=== PATIENT | female | born 1975 | race African-American/Black ===

== ENCOUNTER 2024-09-24 09:47 | Outpatient (AMB) | payer OTHER, SELFPAY ==
--- OUTSIDE RECORDS SUMMARY | 2024-09-24 09:51 | XMS_ITS | Continuity of Care Document ---
Author Organization [facility] Address [address] [place] [address] Phone Care Team Providers Care Pest Control Supervisor Name Role Phone Shashi Jiménez Unavailable Unavailable [...] Simpl e Exostectomy (Silver Procedure) Or Cheilectomy Repair Hallux Rigidus; Simpl e Exostectomy (Silver Procedure) Or Cheilectomy Crutches Alum Push Button Adult 014 Post Op Shoe Deluxe Female Large 2013 Intermediate New Patient Visit 14 Advance Directives [...] Diagnoses Date Provider Providers Copied on Encounter [facility], [address] [place] [address], [id number], tel:[phone] [place] [address] Ct right foot post op (chief complaint) No Information 4 Damion Danielle. [address] [place] [address], [id number] , [place]. tel:[phone] [place] [address] [facility], [address] [place] [address], [id number], [place] tel:[phone] [place] [address] Ct right foot pain (chief complaint) Pain In Limb 4 Julius Haro. [address] [place] [address], [id number] , [place]. tel: [phone] [place] [address]s [place], [address] [place] [address], [id number], [place] tel:[phone] [address] [place] [address] Ct Right Foot Pain (chief complaint) Aftercare following surgery of the musculoskeletal system, [facility] 4 Damion Danielle. [address] [place] [address], [id number] , [place]. tel: [phone] [place] [address] [facility] [place], [address] [place] [address], [id number], [place] tel:[phone] [address] [place] [address] Ct No Information 4 Julius Haro. [address] [place] [address], [id number] , [place]. tel: [phone] [facility] [place], [address] [place] [address], [id number], [place] tel:[phone] [facility] No Information 4 Damion Danielle. [address] [place] [address], [id number] , [place]. tel: [phone] [facility] [place], [address] [place] [address], [id number], [place] tel:[phone] [facility] No Information 4 Julius Haro. [address] [place], [place], [id number] , [place]. tel:[phone] [facility] [place], [address] [place] [address], [id number], tel:[phone] [place] [address] [facility] Ct No Information 4 Julius Haro. [address] [place], [place], [id number] , . tel:[phone] Intermediate New Patient Visit [facility], [address] [place] [address], [id number], [phone] [place] [address] Ct right foot pain (chief complaint) Ankle And Foot PainDJD Ankle & Foot PrimaryHallux rigidusExostosi s of unspecified siteLocalized superficial swelling, mass, or lump 4 Julius Haro. [address] [place] [address], [id number] , . tel:[phone] Family History Family Member Type Diagnosis Age At Onset No Information Payers Payer name Insurance type Covered constitution party ID Authorshenaa dineshafshan(s) [facility] [id number] Social History Type Description Quantity Date Captured [...] Radiology Order X- RAY Foot 3 Views ([id number]), Appointment on: , Sent on: Sent History [...] as needed Discussed post op care/precautio ns Use assistance device support (bharath ashby) Limit walking, standing and impa ct Take medications with food Joint rest Follow exercise program Continue current medication Elevate limb above level of hear t Assessments Type Assessment Date No Information Patient Care Teams Name Effective Dates (start - stop) Status Members No Information
[2024-09-24 10:16] VITALS: BP 116/62; PULSE 75; O2SAT 100; BMI 23.9
--- NOTE | 2024-09-24 10:16 | A.OFFVIS_ITS ---
Vital Signs 09/24/24 10:16 Height 5 ft 8 in Weight 157 lb 6.561 oz BMI 23.9 BP 116/62 Blood Pressure Location Lt brachial Position Sitting Pulse 75 Pulse Source Pulse Oximeter Pulse Oximetry (%) 100 Oxygen Delivery Method Room Air Intake Visit Reasons: Lupus Intake Note: Patient presents for follow up on lupus today. Allergies azithromycin Allergy (Mild, Verified 09/24/24 10:20) Rash sulfamethoxazole [From Bactrim] Adverse Reaction (Mild, Verified 09/24/24 10:20) Rash trimethoprim [From Bactrim] Adverse Reaction (Mild, Verified 09/24/24 10:20) Rash HPI HPI Lupus: Details: She is doing well on hydroxychloroquine. She denies fevers, rash, oral ulcerations, joint pain, worsening fatigue, dyspnea, pleurisy, urinary symptoms, Raynaud's phenomenon. She has actively using gloves in the cold. [facility] Medical History (Updated 09/24/24 @ 15:58 by Jayy Gould MD) Raynauds disease Hypothyroid Lupus (systemic lupus erythematosus) Physical Exam Vital Signs: Last Vital Signs Pulse 75 09/24/24 10:16 BP 116/62 09/24/24 10:16 Pulse Ox 100 09/24/24 10:16 Oxygen Delivery Method Room Air 09/24/24 10:16 BMI result Body Mass Index 23.9 Const Other: General: Comfortable CVS: RRR Respiratory: clear to auscultation bilaterally. Good respiratory effort Skin: No lesions seen MSK: No tenderness of any joints. No synovitis. Good range of motion of upper extremities and lower extremities. Assessment & Plan Assessment & Plan (1) Lupus (systemic lupus erythematosus): Comment: Controlled on hydroxychloroquine 200 mg daily. Code(s): M32.9 - Systemic lupus erythematosus, unspecified Category: Medical Qualifiers: Systemic lupus erythematosus type: unspecified Systemic lupus erythematosus organ involvement: unspecified Qualified Code(s): M32.9 - Systemic lupus erythematosus, unspecified Plan: Labs for disease and drug monitoring ordered Continue hydroxychloroquine 200 mg daily. 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60 - half-way (current) use of unspecified immunomodulators and immunosuppressants Aspartate Amino Transferase Today Z79.60 - technician terminal and repeater (current) use of unspecified immunomodulators and immunosuppressants Complete Blood Count Auto Diff Today Z79.60 - half-way (current) use of unspecified immunomodulators and immunosuppressants BAMBI Reflex Titer and Pattern Today M32.9 - Systemic lupus erythematosus, unspecified Anti Extractable Nuclear Ag Today M32.9 - Systemic lupus erythematosus, unspecified Hepatitis B,C Profile Today M32.9 - Systemic lupus erythematosus, unspecified Complement C3 Today M32.9 - Systemic lupus erythematosus, unspecified Complement C4 Today M32.9 - Systemic lupus erythematosus, unspecified Protein Creatinine Ratio, Ur Today M32.9 - Systemic lupus erythematosus, unspecified Coding Level of Care Code Est Pt Level 4 (76881) Complex EM visit Add On G2211 Diagnoses Systemic lupus erythematosus, unspecified SLE type, unspecified organ involvement status M32.9 Systemic lupus erythematosus type: unspecified Systemic lupus erythematosus organ involvement: unspecified Other watermelon harvesting supervisor (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
== END 2024-09-24 10:57 | disposition home or self-care (01) ==
PROVIDERS: PCP Family Medicine; Visit Provider Internal Medicine Rheumatology
DX: M32.9 Systemic lupus erythematosus, unspecified (principal); Z79.899 Other long term (current) drug therapy
CPT/HCPCS: 99214

== ENCOUNTER 2025-04-28 08:13 | Outpatient (AMB) | payer OTHER, SELFPAY ==
--- OUTSIDE RECORDS SUMMARY | 2014-06-10 05:50 | XMS_ITS | Continuity of Care Document ---
Author Organization [facility] Address [address] [place] [address] Phone Care Team Providers Care Check Out Cashier Name Role Phone Shashi Jiménez Unavailable Unavailable Allergies, Adverse Reactions, Alerts Substance Reaction Status Criticality No Known allergies Medications Medication Instructions Dosage Effective Dates (start - stop) Status Comments hydroxychloroquine 200 mg tablet take 2 every evening - Active levothyroxine 200 mcg Tab take 1 tablet (200MCG) by oral route every day 200 MCG - Active Vitamin D-3 2,000 unit Tab take 1 Capsule by Oral route every day 1 Capsule - Active Procedures Procedure Date Follow Up Care X-RAY Foot 3 Views Follow Up Care STRAPPING OF ANKLE AND/OR FT Follow Up Care Integrity Fracture Walker Air Short Medi um Follow Up Care Repair Hallux Rigidus; Simpl e Exostectomy (Silver Procedure) Or Cheilectomy Crutches Alum Push Button Adult 014 Post Op Shoe Deluxe Female Large 2013 Repair Hallux Rigidus; Simpl e Exostectomy (Silver Procedure) Or Cheilectomy Intermediate New Patient Visit 14 Advance Directives Directive Yes / No Effective Date File Name Resuscitation Not Answered N/A N/A Life Support Not Answered N/A N/A Intubation Not Answered N/A N/A Antibiotics Not Answered N/A N/A IV Fluid Support Not Answered N/A N/A Tube Feed Not Answered N/A N/A Other Directive N/A N/A WARNING:The information contained in this section is historical and is provided for information only and does not constitute a legal document or any assurance that the information is still accurate. Please verify the information with the burns of the legal document before using it for clinical purposes. Encounters Encounter Description Practice Location Reason(s) For Visit Diagnoses Date Provider Providers Copied on Encounter [facility], [address] [place] [address], [id number], tel:[phone] [place] [address] Ct right foot post op (chief complaint) No Information 4 Damion Danielle. [address] [place] [address], [id number] , [place]. tel:[phone] [place] [address] [facility], [address] [place] [address], [id number], [place] tel:[phone] [place] [address] Ct right foot pain (chief complaint) Pain In Limb 4 Julius Haro. [address] [place] [address], [id number] , [place]. tel: [phone] [place], [place] [address]s [place], [address] [place] [address], [id number], [place] tel:[phone] [address] [place] [address] Ct Right Foot Pain (chief complaint) Aftercare following surgery of the musculoskeletal system, [facility] 4 Damion Danielle. [address] [place] [address], [id number] , [place]. tel: [phone] [place], [place] [address]s [place], [address] [place] [address], [id number], [place] tel:[phone] [address] [place] [address] Ct No Information 4 Julius Haro. [address] [place] [address], [id number] , [place]. tel: [phone] [facility] [place], [address] [place] [address], [id number], [place] tel:[phone] [facility] No Information 4 Julius Haro. [address] [place] [address], [id number] , [place]. tel: [phone] [facility] [place], [address] [place] [address], [id number], [place] tel:[phone] [facility] No Information 4 Damion Danielle. [address] [place], [id number] , [place]. tel:[phone] [facility] [place], [address] [place] [address], [id number], tel:[phone] [place] [address] Ct No Information 4 Julius Haro. [address] [place], [place], [id number] , . tel:[phone] Intermediate New Patient Visit [facility], [address] [place], [place], [id number], [phone] [place] [address] Ct right foot pain (chief complaint) Ankle [facility] Foot [facility] Ankle [facility] Foot PrimaryHallux rigidusExostosi s of unspecified siteLocalized superficial swelling, mass, or lump 4 Julius Haro. [address] [place] [address], [id number] , . tel:[phone] Family History Family Member Type Diagnosis Age At Onset No Information Payers Payer name Insurance type Covered constitution party ID Authoriza dineshafshan(s) [facility] [id number] Social History Type Description Quantity Date Captured Comments Alcohol Use Details No Caffeine Use Details Unknown Tobacco Use Status No Information Smoking Status No Information Sex Female Chief Complaint And Reason For Visit From encounter dated '06/10/2014 09:50'. right foot post op (chief complaint) Reason For Referral Reason For Referral No Information Plan Of Treatment Date Type Action Status Goal H&P. Due on due Future Order: Radiology Order X- RAY Foot 3 Views ([id number]), Appointment on: , Sent on: Sent History Of Present Illness Encounter Date Complaint History Of Prese nt Illness No Information Functional Status Date Functional Assessmen t No Information Instructions Date Instruction Additional Infor mation Advance activity as tolerated Progress until full ROM MVI prn Advance activity as tolerated Discussed wound care Discussed post op care/precautio ns Elevate as needed Ice as needed Progress until full ROM Progress until full strength Resume normal activity Elevate as needed Discussed post op care/precautio ns Discussed wound care February cut dressing off on own in 1 week WBAT in low boot Ice as needed Ice as needed Elevate as needed Discussed post op care/precautio ns Joint rest Follow exercise program Continue current medication Elevate limb above level of hear t Use assistance device support (bharath ashby) Limit walking, standing and impa ct Take medications with food Assessments Type Assessment Date No Information Patient Care Teams Name Effective Dates (start - stop) Status Members No Information
--- NOTE | 2025-04-28 08:16 | MHC.OFFVIS ---
Vital Signs 04/28/25 08:17 Height 5 ft 8 in BP 110/80 Blood Pressure Location Rt brachial Position Sitting Pulse 74 Pulse Source Pulse Oximeter Pulse Oximetry (%) 96 Oxygen Delivery Method Room Air Intake Visit Reasons: Follow Up 6mo Intake Note: Patient presents for follow up on lupus today. Allergies azithromycin Allergy (Mild, Verified 04/28/25 08:16) Rash sulfamethoxazole (From Bactrim) Adverse Reaction (Mild, Verified 04/28/25 08:16) Rash trimethoprim (From Bactrim) Adverse Reaction (Mild, Verified 04/28/25 08:16) Rash HPI HPI Follow Up 6mo: Details: Denies fevers, dyspnea, pleurisy, oral ulcers, dry eyes, dry mouth, rash, photosensitivity, migraines, urinary symptoms, active Raynaud's syndrome, joint pain, joint swelling. Raynauds is active in finger tips when she exposes herself to the freezer, warms up quickly. She had food poisoning when on vacation. +hair loss frontal and right scalp. Sees [facility] and is on treatment. [facility] Medical History (Updated 04/28/25 @ 08:45 by Jayy Gould MD) Raynauds disease Hypothyroid Lupus (systemic lupus erythematosus) Physical Exam Const Other: General: Comfortable CVS: RRR Respiratory: clear to auscultation bilaterally. Good respiratory effort Skin: No lesions seen MSK: No tenderness of any joints. No synovitis. Normal range of motion of upper extremities and lower extremities. Assessment & Plan Assessment & Plan (1) Lupus (systemic lupus erythematosus): Comment: Controlled on hydroxychloroquine 200 mg daily. 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 Rheumatology history: Positive BAMBI, Sm/HYBRID CORN BREEDER, low C4, Raynaud's syndrome, fatigue, arthralgias. Prior history of moderate positive Sjogren's antibody (SSA/SSB neg 12/2022. HCQ 2013- Code(s): M32.9 - Systemic lupus erythematosus, unspecified Category: Medical Qualifiers: Systemic lupus erythematosus organ involvement: unspecified Systemic lupus erythematosus type: unspecified Qualified Code(s): M32.9 - Systemic lupus erythematosus, unspecified Plan: Labs for disease and drug monitoring ordered. I will send labs to PCP and [facility]. [facility] per patient's request. She will be following up with Dermatology for hair loss management Continue hydroxychloroquine 200 mg daily. 03/20/2024 OCT and VF wnl. 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: Code(s): Z79.899 - Other senior care (current) drug therapy Category: Medical Plan: See above Orders: Orders Complete Blood Count Auto Diff Today M32.9 - Systemic lupus erythematosus, unspecified, Z79.899 - Other predatory animal exterminator (current) drug therapy Anti DNA DS Antibody Today M32.9 - Systemic lupus erythematosus, unspecified, Z79.899 - Other predatory animal exterminator (current) drug therapy Alanine Aminotransferase Today M32.9 - Systemic lupus erythematosus, unspecified, Z79.899 - Other predatory animal exterminator (current) drug therapy Aspartate Amino Transferase Today M32.9 - Systemic lupus erythematosus, unspecified, Z79.899 - Other predatory animal exterminator (current) drug therapy Creatinine Today M32.9 - Systemic lupus erythematosus, unspecified, Z79.899 - Other senior care (current) drug therapy C Reactive Protein Today M32.9 - Systemic lupus erythematosus, unspecified, Z79.899 - Other predatory animal exterminator (current) drug therapy Erythrocyte Sedimentation Rate Today M32.9 - Systemic lupus erythematosus, unspecified, Z79.899 - Other predatory animal exterminator (current) drug therapy UA w Microscopic Today M32.9 - Systemic lupus erythematosus, unspecified, Z79.899 - Other senior care (current) drug therapy Protein Creatinine Ratio, Ur Today M32.9 - Systemic lupus erythematosus, unspecified, Z79.899 - Other predatory animal exterminator (current) drug therapy Complement C4 Today M32.9 - Systemic lupus erythematosus, unspecified, Z79.899 - Other senior care (current) drug therapy Complement C3 Today M32.9 - Systemic lupus erythematosus, unspecified, Z79.899 - Other predatory animal exterminator (current) drug therapy Medications: Changed From hydroxychloroquine 200 mg PO DAILY To hydroxychloroquine 300 mg (1.5 x 200 mg) PO DAILY 135 tabs 3RF 90 days Coding Level of Care Code Est Pt Level 4 (86060) Complex EM visit Add On G2211 Diagnoses Systemic lupus erythematosus, unspecified SLE type, unspecified organ involvement status M32.9 Systemic lupus erythematosus organ involvement: unspecified Systemic lupus erythematosus type: unspecified Other senior care (current) drug therapy Z79.899
[2025-04-28 08:17] VITALS: BP 110/80; PULSE 74; O2SAT 96
--- OUTSIDE RECORDS SUMMARY | 2025-04-28 08:24 | XMS_ITS | Data Portability ---
Author Organization [facility], [facility] Address [address] [place] [address] Care Team Providers Care National Account Representative Name Role Phone ADDISON ELMORE Primary Care Provider [facility] PLASTIC SURGERY Plastic/Reconstructive Surgeon ORTEGA PAUL Bag Mender [facility] DERMATOLOGY Cushion Stuffer KISHOR CALLES Patient Safety Sitter Assessment Encounter Date Assessment Date Assessment LastModified by Organization Details LastModified Time 08/24/2022 08/24/2022 OT visit # 1 Initial Evaluation A: Pt is a 47 year old referred to outpatient occupational therapy by WILL Clifford with signs and symptoms consistent with: R wrist pain and bilateral CTS Exam findings reveal: Probable R wrist dorsal ganglion cyst, mod increases in pain with wrist flexion/extension. 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 new Treatments may include (as appropriate/as indicated): Therapeutic exercise/Neuromusc ular Reeducation/Therap eutic Activities/ROM, flexibility, endurance, power, functional mechanics/postures /activities; coordination/motor planning/motor control; balance; proprioception; stability; self care/ADL management; home exercise instruction; manual; modalities; taping; orthotics/splint fabrication/traini ng/management [email or web address] Not available 08/24/2022 13:30:24 10/02/2022 10/02/2022 After a discussi on of treatment options, which included consideration of best practices and patient preferences, the following treatment plan and objectives were adopted: My total time spent today documenting and providing coordinated care for this patient is 30 ___. I have reviewed, collected, and updated relevant history and performed a physical exam. Below is my assessment and plan for this patient s care today. [email or web address] Not available 10/02/2022 09:39:00 05/23/2023 05/23/2023 After a discussi on of treatment options, which included consideration of best practices and patient preferences, the following treatment plan and objectives were adopted: pkeough Not available 05/23/2023 08:50:37 06/17/2023 06/17/2023 Patient agreed t o this visit via a secure telehealth platform. Patient understands this is a scheduled visit and the usual procedures with regard to billing and confidentiality apply. Patient was notified that the provider location is [facility] Patient location: home During the visit the patient s medical history and medical record were reviewed. The patient was notified to call our office for worsening or urgent symptoms. [email or web address] Not available 06/17/2023 11:09:04 05/29/2024 05/29/2024 After a discussi on of treatment options, which included consideration of best practices and patient preferences, the following treatment plan and objectives were adopted: pkeough Not available 05/29/2024 09:00:59 Plan of Treatment Reminders Order Date Submit Date Provider Last Modified By Organization Details Last Modified Time Details Appointments Wellness Visit 2024 08:30A M Addison Elmore NP Not available Not available Not available Lab pap, LB + HPV - Pap smear with HPV-YES Is this patient taking hormones (y/n)? IF yes, what type? 2023 024 [facility] (Pathology), [address], [place], [address], 06/05/2024 12:22:01 Referral None recorded. Procedures None recorded. Surgeries None recorded. Imaging US, pelvis, transabdo aktey + transvagi nal - irregular menses 2023 024 [facility] (Imaging), [address], [place], [address], 06/19/2024 09:21:39 electroca rdiogram 2022 023 [email or web address] [facility], [address], [place], [address], 05/23/2023 09:51:35 Medication Orders ciproflox acin 0.3 % eye drops 2022 024 [facility] #[id number], [address], [place], [address], 05/29/2024 08:41:23 Patient TargetsNo targets recorded. Patient Instructions Encounter Date Encounter Id Patient Instructions Last Modified By Organization Details Last Modified Time 05/23/2023 [id number] well visit, wome n 50 to 65: care instructions [email or web address] Not available 05/23/2023 09:42:42 Reason for Referral None Reported. Results Created Date Observation Date Name Description Value Unit Range Abnormal Flag Note LastModifiedBy Organization Detail LastModifiedTime 07/31/20 22 07/31/2022 SEDIM ENTAT ION RATE (ESR) ESR 25 mm/h 0-20 high Not Available [facility] (Outpatient) [address] [place], [address], 07/31/2022 22:10:19 07/31/20 22 08/03/2022 PROTE IN ELECT ROPHO RESIS AND ISOTY PE therapeutic antibody administered ? Unspec ified Not Available [facility] (Outpatient) [address] [place], [address], 08/03/2022 15:58:43 07/31/20 22 08/03/2022 PROTE IN ELECT ROPHO RESIS AND ISOTY PE total protein 8.3 g/dL 6.3-7. 9 high Not Available [facility] (Outpatient) [address] [place], [address], 08/03/2022 15:58:43 07/31/20 22 08/03/2022 PROTE IN ELECT ROPHO RESIS AND ISOTY PE albumin 3.4 g/dL 3.4-4. 7 Not Available [facility] (Outpatient) [address] [place], [address], 08/03/2022 15:58:43 07/31/20 22 08/03/2022 PROTE IN ELECT ROPHO RESIS AND ISOTY PE alpha-1 globulin 0.2 g/dL 0.1-0. 3 Not Available [facility] (Outpatient) [address] [place], [address], 08/03/2022 15:58:43 07/31/20 22 08/03/2022 PROTE IN ELECT ROPHO RESIS AND ISOTY PE alpha-2 globulin 1.1 g/dL 0.6-1. 0 high Not Available [facility] (Outpatient) [address] [place], [address], 08/03/2022 15:58:43 07/31/20 22 08/03/2022 PROTE IN ELECT ROPHO RESIS AND ISOTY PE beta-globuli n 1.0 g/dL 0.7-1. 2 Not Available [facility] (Outpatient) [address] [place], [address], 08/03/2022 15:58:43 07/31/20 22 08/03/2022 PROTE IN ELECT ROPHO RESIS AND ISOTY PE gamma-globul in 2.6 g/dL 0.6-1. 6 high Not Available [facility] (Outpatient) [address] [place], [address], 08/03/2022 15:58:43 07/31/20 22 08/03/2022 PROTE IN ELECT ROPHO RESIS AND ISOTY PE A/G ratio 0.71 Not Available [facility] (Outpatient) [address] [place], [address], 08/03/2022 15:58:43 07/31/20 22 08/03/2022 PROTE IN ELECT ROPHO RESIS AND ISOTY PE M spike g/dL Test compo nent not appli cable or not repor diane. Test compo nent not appli cable or not repor diane. Not Available [facility] (Outpatient) [address] [place], [address], 08/03/2022 15:58:43 07/31/20 22 08/03/2022 PROTE IN ELECT ROPHO RESIS AND ISOTY PE impression SEE NOTE (NOTE ) Polyc lonal hyper gamma globu linem ia See Isoty pe. Not Available [facility] (Outpatient) [address] [place], [address], 08/03/2022 15:58:43 07/31/20 22 08/03/2022 PROTE IN ELECT ROPHO RESIS AND ISOTY PE M-protein isotype maldi-tof MS, S No monocl onal protei n detect ed. (NOTE ) ----- ----- ----- ----A DDITI ONAL INFOR MATIO N---- ----- ----- ----- The submi tted sampl e was assay ed by five separ ate immun opuri ficat ions for IgG, IgA, IgM, kappa and lambd a. The resul t refle cts the findi ngs of eithe r no monoc lonal prote in detec diane or those monoc lonal immun oglob ulins that were detec diane. This test was devel oped and its perfo rmanc e josh cteri stics deter mined by [facility] in a shanti r consi stent with AYLEEN guadarrama. This test has not been clear ed or appro nino by the U.S. Food and Drug Admin istra tion. Not Available [facility] (Outpatient) [address] [place], [address], 08/03/2022 15:58:43 07/31/20 22 08/03/2022 PROTE IN ELECT ROPHO RESIS AND ISOTY PE flag M-protn isotype Negati ve negati ve Not Available [facility] (Outpatient) [address] [place], [address], 08/03/2022 15:58:43 05/03/20 23 05/03/2023 TSH TSH 0.57 uIU/m L 0.50-6 .00 The Ameri can Colle ge of Endoc rinol ogy and Ameri can Thyro id Assoc iatio n recom mend goal TSH value s betwe en 0.4-4 .0 mIU/m L. Not Available [address], [address], 05/03/2023 15:12:16 05/03/20 23 05/06/2023 COMP. METAB OLIC PANEL glucose 84 mg/dL 70-100 Not Available [address], [address], 05/06/2023 11:18:06 05/03/20 23 05/06/2023 COMP. METAB OLIC PANEL BUN 16 mg/dL 7-18 Not Available [address], [address], 05/06/2023 11:18:06 05/03/20 23 05/06/2023 COMP. METAB OLIC PANEL creatinine 1.1 mg/dL 0.8-1. 3 Not Available [address], [address], 05/06/2023 11:18:06 05/03/20 23 05/06/2023 COMP. METAB OLIC PANEL B/C 14.5 ratio Not Available [address], [address], 05/06/2023 11:18:06 05/03/20 23 05/06/2023 COMP. METAB OLIC PANEL GFR >=60ML /MIN mL/mi n normal >=60m L/min - Anais l or midly reduc ed <60mL /min- Decre ased kidne y funct ion <15mL /min - Kidne y failu re [facility] calcu lates estim ated Glome rular Filtr ation Rate (eGFR ) using the Chron ic Kidne y Disea se Epide miolo gy Colla borat ion (CKD- EPI) Equat ion (Drea martino et. al 2020) as recom kathia d by the Natio nal Kidne y Found ation . eGFR is based on age, serum creat inine , and sex. CKD-E PI does not calcu late eGFR by race, does not apply to child ta (age <18 years ), and shoul d not be used in pregn kacey. Not Available [address], [address], 05/06/2023 11:18:06 05/03/20 23 05/06/2023 COMP. METAB OLIC PANEL sodium 139 mmol/ L 136-14 5 Not Available [address], [address], 05/06/2023 11:18:06 05/03/20 23 05/06/2023 COMP. METAB OLIC PANEL potassium 4.8 mmol/ L 3.5-5. 1 Not Available [address], [address], 05/06/2023 11:18:06 05/03/20 23 05/06/2023 COMP. METAB OLIC PANEL chloride 101 mmol/ L 96-107 Not Available [address], [address], 05/06/2023 11:18:06 05/03/20 23 05/06/2023 COMP. METAB OLIC PANEL anion gap 11.4 5.0-15 .0 Not Available [address], [address], 05/06/2023 11:18:06 05/03/20 23 05/06/2023 COMP. METAB OLIC PANEL CO2 27 mmol/ L 21-32 Not Available [address], [address], 05/06/2023 11:18:06 05/03/20 23 05/06/2023 COMP. METAB OLIC PANEL calcium 9.1 mg/dL 8.5-10 .3 Not Available [address], [address], 05/06/2023 11:18:06 05/03/20 23 05/06/2023 COMP. METAB OLIC PANEL total protein 8.3 g/dL 6.4-8. 2 high Not Available [address], [address], 05/06/2023 11:18:06 05/03/20 23 05/06/2023 COMP. METAB OLIC PANEL albumin 3.8 g/dL 3.4-5. 0 Not Available [address], [address], 05/06/2023 11:18:06 05/03/20 23 05/06/2023 COMP. METAB OLIC PANEL globulin 4.5 g/dL Not Available [address], [address], 05/06/2023 11:18:06 05/03/20 23 05/06/2023 COMP. METAB OLIC PANEL A/G 0.8 ratio 0.8-2. 0 Not Available [address], [address], 05/06/2023 11:18:06 05/03/20 23 05/06/2023 COMP. METAB OLIC PANEL total bilirubin 0.30 mg/dL 0.00-1 .00 Not Available [address], [address], 05/06/2023 11:18:06 05/03/20 23 05/06/2023 COMP. METAB OLIC PANEL AST 20 U/L 0-37 Not Available [address], [address], 05/06/2023 11:18:06 05/03/20 23 05/06/2023 COMP. METAB OLIC PANEL ALT 24 U/L 6-63 Not Available [address], [address], 05/06/2023 11:18:06 05/03/20 23 05/06/2023 COMP. METAB OLIC PANEL alk. phos. 85 U/L 50-136 Not Available [address], [address], 05/06/2023 11:18:06 05/12/20 24 05/12/2024 BASIC METAB OLIC PANEL glucose 86 mg/dL 70-100 Not Available [address], [address], 05/12/2024 10:41:01 05/12/20 24 05/12/2024 BASIC METAB OLIC PANEL BUN 19 mg/dL 7-18 high Not Available [address], [address], 05/12/2024 10:41:01 05/12/20 24 05/12/2024 BASIC METAB OLIC PANEL creatinine 1.2 mg/dL 0.8-1. 3 Not Available [address], [address], 05/12/2024 10:41:01 05/12/20 24 05/12/2024 BASIC METAB OLIC PANEL B/C 15.8 ratio Not Available [address], [address], 05/12/2024 10:41:01 05/12/20 24 05/12/2024 BASIC METAB OLIC PANEL GFR 54.8 mL/mi n abnormal >=60m L/min - Anais l or midly reduc ed <60mL /min- Decre ased kidne y funct ion <15mL /min - Kidne y failu re [facility] calcu lates estim ated Glome rular Filtr ation Rate (eGFR ) using the Chron ic Kidne y Disea se Epide miolo gy Colla borat ion (CKD- EPI) Equat ion (Drea martino et. al 2020) as recom kathia d by the Mode carcamo . eGFR is based on age, serum creat inine , and sex. CKD-E PI does not calcu late eGFR by race, does not apply to child ta (age <18 years ), and shoul d not be used in pregn kacey. Not Available [address], [address], 05/12/2024 10:41:01 05/12/20 24 05/12/2024 BASIC METAB OLIC PANEL sodium 141 mmol/ L 136-14 5 Not Available [address], [address], 05/12/2024 10:41:01 05/12/20 24 05/12/2024 BASIC METAB OLIC PANEL potassium 4.8 mmol/ L 3.5-5. 1 Not Available [address], [address], 05/12/2024 10:41:01 05/12/20 24 05/12/2024 BASIC METAB OLIC PANEL chloride 102 mmol/ L 96-107 Not Available [address], [address], 05/12/2024 10:41:01 05/12/20 24 05/12/2024 BASIC METAB OLIC PANEL anion gap 8.1 5.0-15 .0 Not Available [address], [address], 05/12/2024 10:41:01 05/12/20 24 05/12/2024 BASIC METAB OLIC PANEL CO2 31 mmol/ L 21-32 Not Available [address], [address], 05/12/2024 10:41:01 05/12/20 24 05/12/2024 BASIC METAB OLIC PANEL calcium 9.3 mg/dL 8.5-10 .3 Not Available [address], [address], 05/12/2024 10:41:01 05/12/20 24 05/12/2024 TSH TSH 0.66 uIU/m L 0.50-6 .00 The Ameri can Colle ge of Endoc rinol ogy and Ameri can Thyro id Assoc iatio n recom mend goal TSH value s betwe en 0.4-4 .0 mIU/m L. Not Available [address], [address], 05/12/2024 14:09:51 05/29/20 24 06/05/2024 PAP TEST path report [facility] [address] [place] [address] Lab Direc tor: Jacqueline acosta MD TEST CLERK Cytol ogy Repor t Acces hayley #: [id number] FINAL DIAGN OSIS A. PAP SMEAR (THIN PREP) CE: SPECI MEN ADEQU ACY: Satis facto ry for evalu ation ; trans forma tion zone prese nt. INTER PRETA TION: NEGAT JEFF FOR INTRA EPITH ELIAL LESIO N OR BENJIE MARTINEZ . This speci men was danny zed by the autom ated ThinP rep Imagi ng Syste m ([employer]. ) and the selec diane field s were revie wed by a cytot echyanelis logis t. Elect ace waldron Cady d Out By: Karen Antoine er, CT( CP) The Pap test is a scree oksana test prima rily for squam ous cance rs and precu rsors and has assoc iated false -nega tive and false -posi tive resul ts. New techn ologi es such as liqui d-bas ed prepa ratio ns may decre ase but will not elimi yary all false -nega tive resul ts. Regul ar sampl ing and follo w-up of unexp daniel d clini cory signs and sympt oms are recom kathia d to minim ize false negat jeff resul ts. PROCE DURES /ADDE NDA HPV Testi ng (Requ ested ) Order ed Date: 2023 A. PAP SMEAR (THIN PREP) CE: Human Papil bala Virus Test NEGAT JEFF for high- risk Human Papil bala Virus types 16, 18, 45 and the Othe r high risk probe set (Incl udes 31, 33, 35, 39, 51, 52, 56, 58, 59, 66, 68) Note: Testi ng perfo rmed by Ronak welch HR-HP V danny sis. Clini cory corre latio n is advis ed. This HPV test was perfo rmed at [facility], [address] [facility]. This test has been FDA appro nino for both SureP ath and ThinP rep cervi cory cytol ogy speci mens. The accur acy and preci hayley of this test for all other speci men sourc es has been verif ied in the Cytop athol ogy Labor atory of the [facility] and has not been clear ed or appro nino by the U.S. Food and Drug Admin istra tion. Clini cory corre latio n is advis ed. Hanna rylandon phyllisll y Cady d Out By: Ashish Cárdenas on 2023 09:19 CLINI CORY HISTO RY Date of Last Menst rual Perio d: Not Provi ded Menst rual Histo ry: Unkno wn Other Clini cory Condi tions : Scree oksana Pap SPECI MEN SOURC E A: PAP SMEAR (THIN PREP) CE Patie nt Name: YOSI Gallego YOUSIF OUS : [phone] (Age: 49) Sex: F 2 Insti tutio n: [facility] Locat ion: [facility] Date of Colle ction : 2023 Date of Acces hayley: 2023 Repor diane: 2023 11:48 Resul ts to: Monica ramachandran MEDICAID ANALYST Not Available [facility] (Outpatient) [address] [place] [address], [address], 06/05/2024 12:22:01 09/25/20 24 09/28/2024 CREAT ININE creatinine 1.1 mg/dL 0.8-1. 3 Not Available [address], [address], 09/28/2024 12:24:09 09/25/20 24 09/28/2024 CREAT ININE GFR >=60ML /MIN mL/mi n normal >=60m L/min - Anais l or midly reduc ed <60mL /min- Decre ased kidne y funct ion <15mL /min - Kidne y failu re [facility] calcu lates estim ated Glome rular Filtr ation Rate (eGFR ) using the Chron ic Kidne y Disea se Epide miolo gy Colla borat ion (CKD- EPI) Equat ion (Drea martino et. al 2020) as recom kathia d by the Natio nal Kidne y Found ation . eGFR is based on age, serum creat inine , and sex. CKD-E PI does not calcu late eGFR by race, does not apply to child ta (age <18 years ), and shoul d not be used in pregn kacey. Not Available [address], [address], 09/28/2024 12:24:09 09/25/20 24 09/28/2024 AST AST 19 U/L 0-37 Not Available [address], [address], 09/28/2024 12:24:10 09/25/20 24 09/28/2024 ALT ALT 19 U/L 6-63 Not Available [address], [address], 09/28/2024 12:24:10 09/25/20 24 09/28/2024 C-MICA CTIVE PROTE IN (RCRP ) C-reactive protein (rcrp) 1.2 mg/dL 0.5-9. 0 Not Available [address], [address], 09/28/2024 12:24:11 09/25/20 24 10/01/2024 BAMBI SCREE N, IFA, W/REF L TITER AND PATTE RN BAMBI screen, ifa POSITI VE negati ve abnormal BAMBI IFA is a first line scree n for detec ting the prese nce of up to appro ximat alondra 150 autoa ntibo dies in vario us autoi mmune disea ses. A posit jeff BAMBI IFA resul t is sugge stive of autoi mmune disea se and refle xes to titer and patte rn. Furth er labor atory testi ng may be consi dered if clini maximiliano indic ated. For addit ional infor astrid orourke e refer to http: //[facility] sandei haider.Que stDia gnost ics.c om/fa q/FAQ 177 (This link is being provi ded for infor guille saez/ educa shekhar l purpo ses only. ) Not Available [facility] [address], [address], 10/01/2024 09:43:05 09/25/20 24 10/01/2024 BAMBI SCREE N, IFA, W/REF L TITER AND PATTE RN BAMBI titer 1:320 titer high Refer ence Range <1:40 Negat jeff 1:40- 1:80 Low Antib nataliia Level >1:80 [place] diane Antib nataliia Level Not Available [facility] [address], [address], 10/01/2024 09:43:05 09/25/20 24 10/01/2024 BAMBI SCREE N, IFA, W/REF L TITER AND PATTE RN BAMBI pattern NUCLEA R, HOMOGE NEOUS abnormal Homog eneou s patte rn is assoc iated with syste renee lupus eryth emato kadie (SLE) , drug- induc ed lupus and rain ile idiop athic arthr itis. AC-1: Homog eneou s Inter natio nal Conse nsus on BAMBI Patte rns (http s://d [email or web address] g/. 1515/ [facility] 0052) Not Available [facility] [address], [address], 10/01/2024 09:43:05 09/25/20 24 10/01/2024 BAMBI SCREE N, IFA, W/REF L TITER AND PATTE RN BAMBI titer 1:320 titer high Refer ence Range <1:40 Negat jeff 1:40- 1:80 Low Antib nataliia Level >1:80 [place] diane Antib nataliia Level Not Available [facility] [address], [address], 10/01/2024 09:43:05 09/25/20 24 10/01/2024 BAMBI SCREE N, IFA, W/REF L TITER AND PATTE RN BAMBI pattern NUCLEA R, LARGE/ COARSE SPECKL ED abnormal Coars e speck led patte rn is assoc iated with mixed conne ctive tissu e disea se (MCTD ), syste renee lupus eryth emato kadie (SLE) , and syste renee scler osis. AC-5: Large /Coar se Speck led Inter natio nal Conse nsus on BAMBI Patte rns (http s://d [email or web address] g/. 1515/ [facility]2017- 0052) Not Available [facility] [address], [address], 10/01/2024 09:43:05 09/25/20 24 10/01/2024 HEPAT ITIS PANEL , GENER AL hepatitis A Ab, total NON-RE ACTIVE non-re active normal For addit ional astrid frances e refer to http: //izzy [place] stdia gnost ics.c om/fa q/FAQ (This link is being provi ded for infor guille saez/ educa shekhar l purpo ses only. ) Not Available [facility] [address], [place], [address], 10/01/2024 09:43:06 09/25/20 24 10/01/2024 HEPAT ITIS PANEL , GENER AL hepatitis B surface antibody ql REACTI VE non-re active abnormal Not Available [facility] [address], [place], [address], 10/01/2024 09:43:06 09/25/20 24 10/01/2024 HEPAT ITIS PANEL , GENER AL hepatitis B surface antigen NON-RE ACTIVE non-re active normal For addit ional tiffanier astrid orourke e refer to http: //[facility] sandie real stdia gnost ics.c om/fa q/FAQ 202 (This link is being provi ded for infor matio nal/ educa shekhar l purpo ses only. ) Not Available [facility] [address], [place], [address], 10/01/2024 09:43:06 09/25/20 24 10/01/2024 HEPAT ITIS PANEL , GENER AL hepatitis B core Ab total NON-RE ACTIVE non-re active normal For addit ional astrid frances refer to http: //edu sandie real stdia gnost ics.c om/fa q/FAQ 202 (This link is being provi ded for infor matio nal/ educa shekhar l purpo ses only. ) Not Available [facility] [address], [place], [address], 10/01/2024 09:43:06 09/25/20 24 10/01/2024 HEPAT ITIS PANEL , GENER AL hepatitis C antibody NON-RE ACTIVE non-re active normal HCV antib nataliia was non-r eacti ve. There is no labor atory evide nce of HCV infec tion. In most cases , no furth er actio n is requi red. Howev er, if recen t HCV expos ure is suspe cted, a test for HCV RNA (test code 27542 ) is xu lomaxd. For addit ional infor guille goetz refer to http: //[facility] sandie ervin ics.c om/fa q/FAQ 22v1 (This link is being provi ded for infor guille saez/ benny cheung purpo ses only. ) Not Available [facility] [address], [place], [address], 10/01/2024 09:43:06 09/25/20 24 10/01/2024 PROTE IN, TOTAL W/CRE AT, RANDO M URINE creatinine, random urine 136 mg/dL 20-275 normal Not Available [facility] [address], [place], [address], 10/01/2024 09:43:07 09/25/20 24 10/01/2024 PROTE IN, TOTAL W/CRE AT, RANDO M URINE protein/crea tinine ratio 59 mg/g_ creat 24-184 normal Not Available [facility] [address], [place], [address], 10/01/2024 09:43:07 09/25/20 24 10/01/2024 PROTE IN, TOTAL W/CRE AT, RANDO M URINE protein/crea tinine ratio 0.059 mg/mg _crea t 0.024- 0.184 normal Not Available [facility] [address], [place], [address], 10/01/2024 09:43:07 09/25/20 24 10/01/2024 PROTE IN, TOTAL W/CRE AT, RANDO M URINE protein, total, random ur 8 mg/dL 5-24 normal Not Available [facility] [address], [place], [address], 10/01/2024 09:43:07 09/25/20 24 10/01/2024 QUANT IFERO N(R)- TB GOLD PLUS, 1 TUBE quantiferon( R)-TB gold plus, 1 tube NEGATI VE negati ve normal Negat jeff test resul t. M. tuber elier is compl ex infec tion unlik alondra. Not Available [facility] [address], [address], 10/01/2024 09:43:08 09/25/20 24 10/01/2024 QUANT IFERO N(R)- TB GOLD PLUS, 1 TUBE nil 0.04 IU/mL normal Not Available [facility] [address], [address], 10/01/2024 09:43:08 09/25/20 24 10/01/2024 QUANT IFERO N(R)- TB GOLD PLUS, 1 TUBE mitogen-nil >10.00 IU/mL normal Not Available [facility] [address], [address], 10/01/2024 09:43:08 09/25/20 24 10/01/2024 QUANT IFERO N(R)- TB GOLD PLUS, 1 TUBE TB1-nil 0.01 IU/mL normal Not Available [facility] [address] [place] [address], [address], 10/01/2024 09:43:08 09/25/20 24 10/01/2024 QUANT IFERO N(R)- TB GOLD PLUS, 1 TUBE TB2-nil 0.01 IU/mL normal The Nil tube value refle cts the backg round inter feron gamma immun e respo nse of the patie nt's blood sampl e. This value has been subtr acted from the patie nt's displ ayed TB and Mitog en resul ts. Lower than expec diane resul ts with the Mitog en tube preve nt false -nega tive Quant ifero n readi ngs by detmike mccabe nt with a poten tial immun e suppr essiv e condi tion and/o r subop timal pre-a nalyt ical speci men handl ing. The TB1 Antig en tube is coate d with the M. tuber edisonos is-sp ecifi c antig ens desig gen to elici t respo nses from TB antig en prime d CD4+ helpe r T-lym phocy joon. The TB2 Antig en tube is coate d with the M. tuber edisonos is-sp ecifi c antig ens desig gen to elici t respo nses from TB antig en prime d CD4+ helpe r and CD8+ cytot oxic T-lym phocy joon. For addit ional infor astrid orourke e refer to https ://ed elsaati on.qu [employer]/f aq/FA Q204 (This link is being provi ded for infor guille saez/ benny montielona l purpo ses only. ) Not Available [facility] [address], [address], 10/01/2024 09:43:08 09/25/20 24 10/01/2024 SJOGR EN'S ANTIB ODIES (SS-A ,SS-B ) sjogren's antibody (ss-A) <1.0 NEG ai <1.0 neg normal Not Available [facility] [address], [address], 10/01/2024 09:43:09 09/25/20 24 10/01/2024 SJOGR EN'S ANTIB ODIES (SS-A ,SS-B ) sjogren's antibody (ss-B) <1.0 NEG ai <1.0 neg normal Not Available [facility] [address], [address], 10/01/2024 09:43:09 09/25/20 24 10/01/2024 SM AND SM/RN P ANTIB ODIES sm antibody >8.0 POS ai <1.0 neg abnormal Not Available [facility] [place] [facility] [address], [address], 10/01/2024 09:43:09 09/25/20 24 10/01/2024 SM AND SM/RN P ANTIB ODIES sm/torpedo worker antibody >8.0 POS ai <1.0 neg abnormal Not Available [facility] [place] [facility] [address], [place], [address], 10/01/2024 09:43:09 09/25/2010/01/2024 YASSINE-1 ANTIB NATALIIA yassine-1 antibody <1.0 NEG ai <1.0 neg normal Not Available [facility] [place] [facility] [address], [place], [address], 10/01/2024 09:43:10 09/25/20 24 10/01/2024 SCL-7 0 ANTIB NATALIIA scl-70 antibody <1.0 NEG ai <1.0 neg normal Not Available [facility] [place] [facility] [address], [place], [address], 10/01/2024 09:43:11 09/25/20 24 10/01/2024 DNA (DS) ANTIB NATALIIA DNA (ds) antibody 5 IU/mL high IU/mL Inter preta tion < or = 4 Negat jeff 5-9 Indet ermin ate > or = 10 Posit jeff Not Available [facility] [place] [facility] [address], [place], [address], 10/01/2024 09:43:11 09/25/20 24 10/01/2024 CBC (INCL UDES DIFF/ PLT) white blood cell count 2.9 thous and/u L 3.8-10 .8 low Not Available [facility] [address], [address], 10/01/2024 09:43:13 09/25/20 24 10/01/2024 CBC (INCL UDES DIFF/ PLT) red blood cell count 4.41 nadeen on/uL 3.80-5 .10 normal Not Available [facility] [address], [place], [address], 10/01/2024 09:43:13 09/25/20 24 10/01/2024 CBC (INCL UDES DIFF/ PLT) hemoglobin 13.9 g/dL 11.7-1 5.5 normal Not Available [facility] [address], [place], [address], 10/01/2024 09:43:13 09/25/20 24 10/01/2024 CBC (INCL UDES DIFF/ PLT) hematocrit 41.4 % 35.0-4 5.0 normal Not Available [facility] [address], [place], [address], 10/01/2024 09:43:13 09/25/20 24 10/01/2024 CBC (INCL UDES DIFF/ PLT) MCV 93.9 fL 80.0-1 00.0 normal Not Available [facility] [address], [place], [address], 10/01/2024 09:43:13 09/25/20 24 10/01/2024 CBC (INCL UDES DIFF/ PLT) MCH 31.5 pg 27.0-3 3.0 normal Not Available [facility] [address], [place], [address], 10/01/2024 09:43:13 09/25/20 24 10/01/2024 CBC (INCL UDES DIFF/ PLT) MCHC 33.6 g/dL 32.0-3 6.0 normal For adult s, a sligh t decre ase in the calcu lated MCHC value (in the range of 30 to 32 g/dL) is most likel y not clini maximiliano signi ryan t; edie er, it shoul d be inter prete d with cauti on in [facility] n with other red cell elsa eters and the patie nt's clini cory condi tion. Not Available [facility] [place] [facility] [address], [place], [address], 10/01/2024 09:43:13 09/25/20 24 10/01/2024 CBC (INCL UDES DIFF/ PLT) RDW 12.9 % 11.0-1 5.0 normal Not Available [facility] [place] [facility] [address], [place], [address], 10/01/2024 09:43:13 09/25/20 24 10/01/2024 CBC (INCL UDES DIFF/ PLT) platelet count 268 thous and/u L 140-40 0 normal Not Available [facility] [place] [facility] [address], [place], [address], 10/01/2024 09:43:13 09/25/20 24 10/01/2024 CBC (INCL UDES DIFF/ PLT) MPV 11.2 fL 7.5-12 .5 normal Not Available [facility] [place] [facility] [address], [place], [address], 10/01/2024 09:43:13 09/25/20 24 10/01/2024 CBC (INCL UDES DIFF/ PLT) absolute neutrophils 1293 cells /uL 1500-7 800 low Not Available [facility] [place] [facility] [address], [address], 10/01/2024 09:43:13 09/25/20 24 10/01/2024 CBC (INCL UDES DIFF/ PLT) absolute lymphocytes 1291 cells /uL 850-39 00 normal Not Available [facility] [place] [facility] [address], [place], [address], 10/01/2024 09:43:13 09/25/20 24 10/01/2024 CBC (INCL UDES DIFF/ PLT) absolute monocytes 299 cells /uL 200-95 0 normal Not Available [facility] [place] [facility] [address], [place], [address], 10/01/2024 09:43:13 09/25/20 24 10/01/2024 CBC (INCL UDES DIFF/ PLT) absolute eosinophils 9 cells /uL 15-500 low Not Available [facility] [place] [facility] [address], [place], [address], 10/01/2024 09:43:13 09/25/20 24 10/01/2024 CBC (INCL UDES DIFF/ PLT) absolute basophils 9 cells /uL 0-200 normal Not Available [facility] [place] [facility] [address], [place], [address], 10/01/2024 09:43:13 09/25/20 24 10/01/2024 CBC (INCL UDES DIFF/ PLT) neutrophils 44.6 % normal Not Available [facility] [place] [facility] [address], [place], [address], 10/01/2024 09:43:13 09/25/20 24 10/01/2024 CBC (INCL UDES DIFF/ PLT) lymphocytes 44.5 % normal Not Available [facility] [place] [facility] [address], [place], [address], 10/01/2024 09:43:13 09/25/20 24 10/01/2024 CBC (INCL UDES DIFF/ PLT) monocytes 10.3 % normal Not Available [facility] [place] [facility] [address], [place], [address], 10/01/2024 09:43:13 09/25/20 24 10/01/2024 CBC (INCL UDES DIFF/ PLT) eosinophils 0.3 % normal Not Available [facility] [address], [place], [address], 10/01/2024 09:43:13 09/25/20 24 10/01/2024 CBC (INCL UDES DIFF/ PLT) basophils 0.3 % normal Not Available [facility] [address], [place], [address], 10/01/2024 09:43:13 09/25/20 24 10/01/2024 SED RATE BY MODIF IED WESTE RGREN sed rate by modified westergren 38 mm/h < or = 30 high Not Available [facility] [address], [place], [address], 10/01/2024 09:43:13 09/28/20 24 09/28/2024 COMPL EMENT C3 complement C3 90 mg/dL 90-207 Not Available [address], [address], 09/28/2024 16:00:05 09/28/20 24 09/28/2024 COMPL EMENT C4 complement C4 5.5 mg/dL 17.4-5 2.2 low Not Available [address], [address], 09/28/2024 16:00:06 01/04/20 23 01/03/2023 MAMMO , scree oksana, tomos ynthe sis, bilat eral CLINIC AL HISTOR Y: Screen ing. TECHNI QUE: 3D mammog bianca (tomos ynthes is) and 2D mammog bianca (C-vie w) images are genera diane. Images review ed with a CAD system . COMPAR ELISABET: Prior mammog tatiana back throug h 2017. FINDIN GS: The breast parenc hyma is hetero geneou sly dense. Right breast : There is a 6 mm focal asymme try in the upper, slight ly outer retroa reolar right breast , 3.5 cm from the nipple on the MLO view. It is partia lly obscur ed by dense tissue but appear s circum scribe d, favori ng a cyst. It should be evalua diane with target ed ultras ound. There are no suspic ious microc alcifi cation s. The breast shoshana ecture is unrema rkable . Left breast : There are no domina nt masses . There are no suspic ious microc alcifi cation s. The breast shoshana ecture is unrema rkable . IMPRES HAYLEY: Incomp lete imagin g workup . The radiol ogy depart ment will contac t the patien t to arrang e for additi onal imagin g. Breast densit y: C. The breast s are hetero geneou sly dense, which may obscur e small masses . BIRADS : 0, INCOMP LETE: NEED ADDITI ONAL IMAGIN G EVALUA TION. Vonda aguirre Physic robson: Elva Paulino ms [facility] (Imaging) [address], [place], [address], 01/03/2023 19:43:17 01/11/20 23 01/10/2023 US, felicia t CLINIC AL HISTOR Y: Right breast lump, upper outer quadra nt TECHNI QUE: Target ed sonogr aphy of the upper outer right breast is perfor med. COMPAR ELISABET: None. FINDIN GS: The breast tissue appear s unrema rkable . There is no suspic ious mass or shadow ing. IMPRES HAYLEY: No sonogr aphic correl ate to the benign -appea ring mammog raphic asymme try. No sonogr aphic eviden ce of malign kacey. The patien t should return for a follow -up diagno stic right breast mammog nicole in 6 months . Ultras ound should be availa ble if needed . Vonda aguirre Physic robson: Elva Paulino ms [facility] (Imaging) [address] [place], [address], 01/15/2023 08:39:59 05/23/20 23 05/30/2023 elect rocar diogr am No observ ation record ed. [facility] [address] [facility], [place], [address], 05/30/2023 13:37:43 05/23/20 elect rocar diogr am No observ ation record ed. [email or web address] Not Available 2022 13:38:55 07/11/20 23 07/11/2023 MAMMO , diagn ostic , tomos ynthe sis, unila teral MAMMO, DIAG, DALJIT, UNI, RIGHT, US, BREAST , RIGHT: 023 BI-RAD S: 2 CLINIC AL: 48-yea r old Female for Right Diagno stic Mammog nicole and Right Diagno stic Breast U/S. No person al or first- degree family histor y of breast cancer . Curren t report ed family histor y of breast cancer : matern al aunt. The patien t report s testin g negati ve for BRCA gene mutati on. PRIOR EXAMS: Review ed previo us images from 2022, 2021, 2019 and 2018. MAMMOG BIANCA TECHNI QUE: 3D mammog bianca (tomos ynthes is) and 2D mammog bianca (C-vie w) images are genera diane. Images review ed with a CAD system . ULTRAS OUND TECHNI QUE Real-t hussein ultras ound exam was perfor med focuse d to area of clinic al and/or imagin g concer n. DENSIT Y Right: C. Hetero geneou sly dense, which may obscur e small masses . MAMMOG BIANCA FINDIN GS Right (findi ng-1): Lower Outer at 8:30, 4 cm from nipple , Middle depth, measur ing 0.5 cm: There is a round mass presen t. Right: No suspic ious findin g with benign findin gs noted. ULTRAS OUND FINDIN GS Right (findi ng-1): Outer at 9:00, 3 cm from nipple , measur ing 0.5 x 0.4 x 0.6 cm: Correl ating with findin gs on mammog nicole there is a lymph node presen t. CONCLU HAYLEY Right * No eviden ce of malign kacey with benign findin gs. RECOMM ENDATI ONS Bilate ral * Annual screen ing mammog bianca. ADMINI STRATI VE: A lay summar y was mailed to your patien nadira de la cruz the result s and recomm endati ons for follow -up. OVERAL L ASSESS MENT CATEGO RY BI-RAD S-2: Benign Findin gs. The [employer] recomm ends annual screen ing mammog bianca beginn ing at age 40 for women with averag e risk of breast cancer . ELECTR ONICAL LY SIGNED : Elva Paulino ms, M.D. on 2022 at 10:04: 17 AM Vonda aguirre Physic robson: Elva Paulino ms [facility] (Imaging) [address], [place], [address], 07/11/2023 21:32:46 07/11/20 23 07/11/2023 US, breas t MAMMO, DIAG, DALJIT, UNI, RIGHT, US, BREAST , RIGHT: 023 BI-RAD S: 2 CLINIC AL: 48-yea r old Female for Right Diagno stic Mammog nicole and Right Diagno stic Breast U/S. No person al or first- degree family histor y of breast cancer . Tj waddell report ed family histor y of breast cancer : matern al aunt. The patien t report s testin g negati ve for BRCA gene mutati on. PRIOR EXAMS: Review ed previo us images from 2022, 2021, 2019 and 2018. MAMMOG BIANCA TECHNI QUE: 3D mammog bianca (tomos ynthes is) and 2D mammog bianca (C-vie w) images are genera diane. Images review ed with a CAD system . ULTRAS OUND TECHNI QUE Real-t hussein ultras ound exam was perfor med focuse d to area of clinic al and/or imagin g concer n. DENSIT Y Right: C. Hetero geneou sly dense, which may obscur e small masses . MAMMOG BIANCA FINDIN GS Right (findi ng-1): Lower Outer at 8:30, 4 cm from nipple , Middle depth, measur ing 0.5 cm: There is a round mass presen t. Right: No suspic ious findin g with benign findin gs noted. ULTRAS OUND FINDIN GS Right (findi ng-1): Outer at 9:00, 3 cm from nipple , measur ing 0.5 x 0.4 x 0.6 cm: Correl ating with findin gs on mammog nicole there is a lymph node presen t. CONCLU HAYLEY Right * No eviden ce of malign kacey with benign findin gs. RECOMM ENDATI ONS Bilate ral * Annual screen ing mammog bianca. ADMINI STRATI VE: A lay summar y was mailed to your patien t sirisha de la cruz the result s and recomm endati ons for follow -up. OVERAL L ASSESS MENT CATEGO RY BI-RAD S-2: Benign Findin gs. The [employer] recomm ends annual screen ing mammog bianca beginn ing at age 40 for women with averag e risk of breast cancer . ELECTR ONICAL LY SIGNED : Elva Paulino ms MMacarena. on 2022 at 10:04: 17 AM Readradha aguirre Physic robson: Elva Paulino ms [facility] (Imaging) [address] , [place], [place], [address], 07/11/2023 21:32:47 01/22/20 24 01/22/2024 MAMMO , scree oksana, tomos ynthe sis, bilat eral MAMMO, SCREEN , DALJIT, BILAT: 024. BI-RAD S: 1 CLINIC AL: 48-yea r old Female for Bilate ral Screen ing Mammog nicole. No person al or first- degree family histor y of breast cancer . Curremi t report ed family histor y of breast cancer : matern al aunt. The patien t report s testin g negati ve for BRCA gene mutati on. PRIOR EXAMS: Review ed previo us images from 2022 and 2021. MAMMOG BIANCA TECHNI QUE: 3D mammog bianca (tomos ynthes is) and 2D mammog bianca (C-vie w) images are genera diane. Images review ed with a CAD system . DENSIT Y C. Hetero geneou sly dense, which may obscur e small masses . MAMMOG BIANCA FINDIN GS Bilate ral: No suspic ious mass, asymme try, microc alcifi cation , or other abnorm ality seen. CONCLU HAYLEY * No eviden ce of malign kacey. RECOMM ENDATI ONS Bilate ral * Annual screen ing mammog bianca. ADMINI STRATI VE: A lay summar y was mailed to your patien nadira de la cruz the result s and recomm endati ons for follow -up. OVERAL L ASSESS MENT CATEGO RY BI-RAD S-1: Negati ve. The [employer] recomm ends annual screen ing mammog bianca beginn ing at age 40 for women with averag e risk of breast cancer . ELECTR ONICAL LY SIGNED : Yvan Hernandez M.D. on 2023 at 09:41: 01 AM Vonda aguirre Physic robson: Yvan Hernandez [address] (Imaging) [address] , [place], [address], 01/22/2024 09:51:28 04/01/20 24 04/01/2024 visua l field test No observ ation record ed. [email or web address] Not Available 2023 21:16:32 06/19/20 24 06/19/2024 US, pelvi s, trans abdom inal + trans vagin al CLINIC AL HISTOR Y: Irregu lar period s. TECHNI QUE: Transa bdomin al and endova ginal sonogr aphy of the pelvis perfor med. COMPAR ELISABET: None. FINDIN GS: Uterus 5.2 x 4.8 x 7.7 cm. The uterus is anteve rted. The uterus is hetero geneou s and contai ns multip le fibroi ds. This includ es an approx imatel y 3.3 cm right lower fibroi d, a 3.3 cm left fundal fibroi d, and a 2.4 cm fibroi d adjace nt to the endome trium. Endome trium 4 mm. No focal endome trial abnorm ality is seen. There is limite d detail due to the fibroi ds. Right ovary 1.7 x 0.8 x 2.2 cm, 1.6 mL The right ovary is within normal limits . The left ovary is not visual ized. There is no abnorm al free fluid. IMPRES HAYLEY: 1. Fibroi d uterus . The endome trium is diffic ult to visual ize due to the fibroi ds. 2. Nonvis ualize d left ovary. Vonda aguirre Physic robson: Elva Paulino ms [facility] (Imaging) [address] , [place], [address], 06/25/2024 23:17:37 Result Notes Documentation Provider Name and Address Organization Details Recorded Time Mammo, Screening, Tomosynthesis, Bilateral : CLINICAL HISTORY: Screening. TECHNIQUE: 3D mammography (tomosynthesis) and 2D mammography (C-view) images are generated. Images reviewed with a CAD system. COMPARISON: Prior mammograms back through 08/06/2018. FINDINGS: The breast parenchyma is heterogeneously dense. Right breast: There is a 6 mm focal asymmetry in the upper, slightly outer retroareolar right breast, 3.5 cm from the nipple on the MLO view. It is partially obscured by dense tissue but appears circumscribed, favoring a cyst. It should be evaluated with targeted ultrasound. There are no suspicious microcalcifications. The breast architecture is unremarkable. Left breast: There are no dominant masses. There are no suspicious microcalcifications. The breast architecture is unremarkable. IMPRESSION: Incomplete imaging workup. The radiology department will contact the patient to arrange for additional imaging. Breast density: C. The breasts are heterogeneously dense, which may obscure small masses. BIRADS: 0, INCOMPLETE: NEED ADDITIONAL IMAGING EVALUATION. Reading Physician: Yuan Elmore NP [address] [place] [address], [phone], [facility] 01/03/2023 19:43:17 Mammo, Diagnostic, Tomosynthesis, Unilateral : MAMMO, DIAG, DALJIT, UNI, RIGHT, US, BREAST, RIGHT: 07/11/2023 BI-RADS: 2 CLINICAL: 48-year old Female for Right Diagnostic Mammogram and Right Diagnostic Breast U/S. No personal or first-degree family history of breast cancer. Current reported family history of breast cancer: maternal aunt. The patient reports testing negative for BRCA gene mutation. PRIOR EXAMS: Reviewed previous images from 2022, 2021, 2019 and 2019. MAMMOGRAPHY TECHNIQUE: 3D mammography (tomosynthesis) and 2D mammography (C-view) images are generated. Images reviewed with a CAD system. ULTRASOUND TECHNIQUE Real-time ultrasound exam was performed focused to area of clinical and/or imaging concern. DENSITY Right: C. Heterogeneously dense, which may obscure small masses. MAMMOGRAPHY FINDINGS Right (finding-1): Lower Outer at 8:30, 4 cm from nipple, Middle depth, measuring 0.5 cm: There is a round mass present. Right: No suspicious finding with benign findings noted. ULTRASOUND FINDINGS Right (finding-1): Outer at 9:00, 3 cm from nipple, measuring 0.5 x 0.4 x 0.6 cm: Correlating with findings on mammogram there is a lymph node present. CONCLUSION Right * No evidence of malignancy with benign findings. RECOMMENDATIONS Bilateral * Annual screening mammography. ADMINISTRATIVE: A lay summary was mailed to your patient indicating the results and recommendations for follow-up. OVERALL ASSESSMENT CATEGORY BI-RADS-2: Benign Findings. The [employer] recommends annual screening mammography beginning at age 40 for women with average risk of breast cancer. ELECTRONICALLY SIGNED: Yuan Richter M.D. on 07/11/2023 at 10:04:17 AM Reading Physician: Yuan Elmore, MEDICAID ANALYST [address] [place] [address], [phone], [facility] 07/11/2023 21:32:46 Mammo, Screening, Tomosynthesis, Bilateral : MAMMO, SCREEN, DALJIT, BILAT: 01/22/2024. BI-RADS: 1 CLINICAL: 48-year old Female for Bilateral Screening Mammogram. No personal or first-degree family history of breast cancer. Current reported family history of breast cancer: maternal aunt. The patient reports testing negative for BRCA gene mutation. PRIOR EXAMS: Reviewed previous images from 2022 and 2021. MAMMOGRAPHY TECHNIQUE: 3D mammography (tomosynthesis) and 2D mammography (C-view) images are generated. Images reviewed with a CAD system. DENSITY C. Heterogeneously dense, which may obscure small masses. MAMMOGRAPHY FINDINGS Bilateral: No suspicious mass, asymmetry, microcalcification, or other abnormality seen. CONCLUSION * No evidence of malignancy. RECOMMENDATIONS Bilateral * Annual screening mammography. ADMINISTRATIVE: A lay summary was mailed to your patient indicating the results and recommendations for follow-up. OVERALL ASSESSMENT CATEGORY BI-RADS-1: Negative. The [employer] recommends annual screening mammography beginning at age 40 for women with average risk of breast cancer. ELECTRONICALLY SIGNED: Addison Hernandez M.D. on 01/22/2024 at 09:41:01 AM Reading Physician[facility] 09:51:28 Problems Name Problem SNOMED Code Status Onset Date Resolution Date Notes Provider Name and Address Organization Details Recorded Time Secondary hypothyroi dism 95341087 Active Not Available [facility] 3 10:41:36 Raynaud's disease 478920805 Active 2015 Not Available [facility] 3 10:41:36 Systemic lupus erythemato kadie 48850058 Active 2015 Not Available [facility] 3 10:41:36 General examinatio n of patient Completed 201508/05/2017 Maria Del Carmen Ruvalcaba PA-C [address] [place] [address], [phone] , [facility] 7 14:35:21 Loss of hair 909033578 Completed 201608/12/2019 Addison Elmore NP [address] [place] [address], [phone] , [facility] 9 15:41:34 Problem Notes None recorded. Procedures Surgical History Date Name Laterality Status Provider Name and Address Organization Details Recorded Time 08/24/20 22 Physical Activity Counselling completed Nell [facility] 08/22/2022 23:38:37 08/24/20 22 [address]: OT Eval, Low Complexity completed Nell Alma Delia [facility] 08/22/2022 23:38:30 11/03/19 22 Angel - Colonoscopy completed Norman Ortiz MD [address] [place] [address], [phone], [facility] 11/03/2021 07:51:09 08/23/20 21 prevention-cardio vascular risk reduction counseling completed Addison Elmore NP [address] [place] [address], [phone], [facility] 08/24/2021 19:52:03 01/31/20 21 Oral surgery procedure completed Nell Bell LPN [facility] 02/17/2021 08:37:52 08/19/20 20 prevention-cardio vascular risk reduction counseling completed Cindy Baudilio [facility] 08/19/2020 13:28:31 08/19/20 20 prevention-annual alcohol misuse screening completed Cindy Astudillo [facility] 08/19/2020 13:28:31 04/16/20 16 Pachymetry completed Collette Power Mcdowell, OD [address] [place], [phone], [facility] 04/16/2016 16:56:50 04/16/20 16 Visual field comprehensive completed Collette Power Mcdowell, OD [address] [place], [phone], [facility] 04/16/2016 16:56:59 04/16/20 16 HRT completed Collette Power Mcdowell, OD [address] [place], [phone], [facility] 04/16/2016 16:57:06 03/02/20 16 POC Urinalysis Testing completed Glory Garcia [facility] 03/02/2016 10:00:35 01/11/20 16 Refraction completed Collette Steve Jeremias, OD [address] [place] [address], [phone], [facility] 01/11/2016 10:22:06 Imaging Results None recorded. Procedure Notes None recorded. Medical Equipment None Reported. Allergies Allergen ID Allergen Name Allergen Category Reaction Reaction Severity Criticality Documentation Date Start Date Code Code System Note Provider Name and Address Organization Details Recorded Time 036607 Bactrim medicatio n rash Not available Not available 01/06/2016 20936 9 RxNorm Glory meehan [facility] 6 10:22:58 [id number] azithromy yan medicatio n rash Not available Not available 01/06/2016 09569 RxNorm Glorysandy meehan [facility] 6 10:22:58 Medications Name Sig Start Date Stop Date Status Note LastModified by Organization Details LastModified Time amoxicillin 500 mg capsule TAKE 1 CAPSULE BY MOUTH THREE TIMES A DAY 05/23 completed Not Available Not Available Not Available prednisone 10 mg tablet Take 1 tablet every day by oral route for 10 days. 08/23 completed PRN Not Available Not Available Not Available cefuroxime axetil 250 mg tablet TAKE 1 TABLET BY MOUTH EVERY 12 HOURS FOR 7 DAYS 07/31 completed Not Available Not Available Not Available ibuprofen 800 mg tablet TAKE 1 TABLET BY MOUTH THREE TIMES A DAY FOR SWELLING 06/17 completed Not Available Not Available Not Available tizanidine 4 mg tablet TAKE 1 TO 2 TABLETS BY MOUTH EVERY DAY AT BEDTIME DIRECTED active Not Available Not Available No t Available hydroquinon e 4 % topical cream APPLY TO AFFECTED DARK SPOTS IN ON CHIN TWICE DAILY FOR 6 WEEKS ON, THEN SIX WEEKS OFF active Not Available Not Available No t Available triazolam 0.125 mg tablet TAKE 2 TABLET BY MOUTH DIRECTED 90 MINUTES PRIOR TO PROCEDURE 06/17 completed Not Available Not Available Not Available alclometaso ne 0.05 % topical cream APPLY TO AFFECTED AREA ON FACE TWICE A DAY FOR UP TO TWO WEEKS, THEN NEEDED ONLY active Not Available Not Available No t Available valacyclovi r 500 mg tablet TAKE 1 TABLET BY MOUTH TWICE A DAY 2024 active Not Available Not Available Not Avai lable minoxidil 2.5 mg tablet TAKE 1/4 TABLET BY MOUTH EVERY DAY FOR HAIR LOSS active Not Available Not Available No t Available doxycycline monohydrate 100 mg tablet TAKE 1 TABLET BY MOUTH TWICE A DAY FOR 7 DAYS 05/23 completed Not Available Not Available Not Available spironolact one 25 mg tablet TAKE 2 TABLETS BY MOUTH DAILY 08/12 completed Not Available Not Available Not Available amoxicillin 500 mg tablet Take 1 tablet every 12 hours by oral route for 3 days. 08/05 completed Not Available Not Available Not Available levothyroxi ne 75 mcg tablet TAKE 1 TABLET SAT-SAT AND TAKE 2 TABLETS ON SAT AND SUN active Not Available Not Available No t Available oxycodone-a cetaminophe n 5 mg-325 mg tablet TAKE 1 TABLET BY MOUTH EVERY 6 HOURS NEEDED FOR PAIN 05/23 completed Not Available Not Available Not Available ciprofloxac in 0.3 % eye drops PLEASE SEE ATTACHED FOR DETAILED DIRECTION S 05/29 completed Not Available Not Available Not Available erythromyci n 5 mg/gram (0.5 %) eye ointment APPLY 1 CM RIBBON INTO THE LOWER CONJUNCTI CHARISSE SAC(S) IN THE AFFECTED EYE(S) 3 TIMES PER DAY active Not Available Not Available No t Available hydroxychlo roquine 200 mg tablet TAKE 2 TABLETS BY MOUTH EVERY EVENING active Not Available Not Available No t Available fluticasone propionate 50 mcg/actuati on nasal spray,suspe nsion PRN active Not Available Not Available Not Available spironolact one 50 mg tablet TAKE 1 TABLET BY MOUTH TWICE A DAY active Not Available Not Available No t Available amoxicillin 500 mg-potassiu m clavulanate 125 mg tablet TAKE 1 TABLET BY MOUTH EVERY 12 HOURS FOR 7 DAYS 01/22 completed Not Available Not Available Not Available chlorhexidi ne gluconate 0.12 % mouthwash RINSE WITH 15 ML BY MOUTH TWICE A DAY GENTLY RINSE. DO NOT SWALLOW 06/17 completed Not Available Not Available Not Available vitamin B complex 1 tab daily 02/17 completed Not Available Not Available Not Available biotin 1 tab daily. 10,000mcg active Not Available Not Available No t Available Vitamin D 5,000 units 1 tab daily active Not Available Not Available No t Available cholecalcif leonard (vitamin D3) 1,250 mcg (50,000 unit) capsule TAKE 1 CAPSULE BY MOUTH EACH WEEK 02/17 completed Not Available Not Available Not Available Afluria Qd 2019- (36 mos up)(PF)60 mcg (15 mcg x4)/0.5 mL IM syringe PHARMACY ADMINISTE RED 08/19 completed Not Available Not Available Not Available Vitals Date Recorded Body height Body mass index (BMI) Body weight Heart rate Oxygen saturation Oxygen saturation in Arterial blood by Pulse oximetry Systolic And Diastolic Provider Name and Address Organization Details Last Updated DateTime 3 172.09 cm 26.1 kg/m2 22637.8 g 101 /min 99 % 99 % 112/70 mm[Hg] Debbie Mast [facility] 3 08:42:47 Date Recorded Body weight Body mass index (BMI) Body height Heart rate Oxygen saturation Oxygen saturation in Arterial blood by Pulse oximetry Systolic And Diastolic Provider Name and Address Organization Details Last Updated DateTime 4 35232.5 9 g 24.2 kg/m2 172.09 cm 88 /min 98 % 98 % 112/70 mm[Hg] VERONICA Encinas [facility] 4 08:49:49 Date Recorded Body height Body mass index (BMI) Body weight Heart rate Oxygen saturation Oxygen saturation in Arterial blood by Pulse oximetry Systolic And Diastolic Provider Name and Address Organization Details Last Updated DateTime 2 172.09 cm 25.8 kg/m2 49112.2 2 g 77 /min 99 % 99 % 120/75 mm[Hg] Chica Stephens [facility] 2 09:05:27 Social History Question Answer Notes LastModified by Organizat ion Details LastModified Time Tobacco Smoking Status Never Smoker 10/02/22 CJ06/17/23 MV05/29/24 MV [facility]24 08:42:39 Do You Wear A Helmet When Biking? Yes Information not available 01/06/2016 What Is Your Level Of Caffeine Consumption? None [email or web address] Information not available 05/23/2023 How Much Tobacco Do You Chew? None Information not available 01/06/2016 What Type Of Diet Are You Following? REGULAR Information not available 01/06/2016 Which Illicit Or Recreational Drugs Have You Used? None Information not available 02/17/2021 Education 4 Year College Information not available 01/06/2016 Have There Been Any Changes To Your Family Or Social Situation? No Information no t available 08/23/2021 How Many Days In The Past Year Have You Had A Heavy Drinking Consumption (4+ Female, 5+ Male)? 0 [email or web address] Information no t available 07/31/2016 Are There Any Guns Present In Your Home? Yes Information not available 01/06/2016 Do You Use Insect Repellent Routinely? Yes Information not available 08/23/2021 Live Alone Or With Others? With Others Information not available 01/06/2016 Patient Has Health Care Proxy Signed And In Chart Yes [email or web address] Information not available 08/25/2021 Marital Status Informatio n not available 01/06/2016 Mosquito Repellent Used Routinely Yes Information not available 01/06/2016 What Was The Date Of Your Most Recent Tobacco Screening? 05/29/2024 10/02/22 CJ/08/29 MV05/29/24 MV [email or web address] Information not available 05/29/2024 How Many Children Do You Have? 3 Information not available 01/06/2016 What Is Your Relationship Status? [email or web address] Information not available 05/23/2023 Do You Use Your Seat Belt Or Car Seat Routinely? Yes Information not available 08/23/2021 Seat Belts Used Routinely Yes Information not available 01/06/2016 Smoke Alarm In Home Yes Information not available 01/06/2016 Do You Have Smoke And Carbon Monoxide Detectors In Your Home? Yes Information not available 08/23/2021 Are You Passively Exposed To Smoke? No Information no t available 08/23/2021 How Much Tobacco Do You Smoke? No Information not available 08/23/2021 General Stress Level Low Information not available 01/06/2016 Do You Use Sunscreen Routinely? Yes Information not available 01/06/2016 Sex: Unknown Functional Status Question Answer Note LastModified by Organizat ion Details LastModified Time Do you use any illicit or recreational drugs? No Information not available 08/23/2021 Do you or have you ever used any other forms of tobacco or nicotine? No Information not available 08/23/2021 What is your level of alcohol consumption? Occasional special events and 2-3 times a month Information not available 02/17/2021 Do you or have you ever used smokeless tobacco? Never used smokeless tobacco Information not available 08/23/2021 Are you currently employed? 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 Never used electronic cigarettes Information not available 08/23/2021 What is your exercise level? Moderate daily walks [email or web address] Information not available 05/23/2023 Mental Status None recorded. Family History Relationship Description Onset Age of this Age Resolved Age Notes LastModified by Organization Details LastModified Time Father Coronary arterioscler osis in sleep- CAD [email or web address] Not available 01/06/2016 10:44:23 Mother Type 2 diabetes mellitus [email or web address] Not available 03/08 13:19:08 Mother Disorder of thyroid gland no offici al diagno sis but told in past (age 20-30) needed out but did not happen , now on thyroi d medica tion. [email or web address] Not available 04/03/2016 13:18:54 Maternal Aunt Malignant tumor of breast late 40's/e dorys 50's [email or web address] Not available 01/06/2016 10:44:23 Maternal Aunt Malignant tumor of cervix not clear of detail s [email or web address] Not available 04/03/2016 13:20:54 Maternal Aunt Malignant neoplasm of uterus [email or web address] Not available 2019 14:40:01 Brother Type 2 diabetes mellitus [email or web address] Not available 03/08 13:19:04 Paternal Uncle Type 2 diabetes mellitus [email or web address] Not available 03/08 13:19:20 Notes:M aunt-- lupus mom-- s kin lupus 2019- 3 sons. all healthy 2020: No changes. everyone OK. 2020- Aunt had uterince CA- being treated (not going well). Medical History Condition Response Hypothyroid Y Systemic Lupus E Y RHEUMATOLOGIC Y Gynecological History Statement/Question Response Menses Monthly Y History of Abnormal Pap Y Current Control Method Partner Vas ectomy Definite Date of LMP 07/24/2017 Obstetrics History GPAL:G 0 P 0 0 0 0 Immunizations Vaccine Type Date Status Note Provider Nam e and Address Organization Details Recorded Time Tdap 6 completed Not Available [facility] 10/24/2019 02:20:18 Influenza, split virus, quadrivalent, PF 6 completed Not Available [facility] 10/24/2019 02:21:05 pneumococcal polysaccharide PPV23 6 completed Not Available [facility] 10/24/2019 02:21:10 Influenza, split virus, quadrivalent, PF 7 completed Not Available [facility] 10/24/2019 02:22:02 Influenza, split virus, quadrivalent, PF 8 completed Not Available [facility] 10/24/2019 02:29:52 Influenza, split virus, quadrivalent, PF 9 completed Not Available [facility] 10/24/2019 02:24:33 Influenza, split virus, quadrivalent, preservative 0 completed Jesica Gladu, [employer] [facility] 06/11[facility]2023 11:56:01 Influenza, split virus, quadrivalent, preservative 1 completed Jesica Gladu, [employer] [facility] 06/11/2023 11:56:01 COVID-19, mRNA, LNP-S, PF, 100 mcg/0.5mL dose or 50 mcg/0.25mL dose 1 completed Jesica Gladu, [employer] [facility] 06/11/2023 11:56:01 COVID-19, mRNA, LNP-S, PF, 100 mcg/0.5mL dose or 50 mcg/0.25mL dose 1 completed Jesica Gladu, [employer] [facility] 06/11/2023 11:56:01 COVID-19, mRNA, LNP-S, PF, 100 mcg/0.5mL dose or 50 mcg/0.25mL dose 1 completed Jesica Gladu, [employer] [facility] 06/11/2023 11:56:01 COVID-19, mRNA, LNP-S, bivalent, PF, 50 mcg/0.5 mL or 25mcg/0.25 mL dose 3 completed Jesica Gladu, [employer] [facility] 06/11/2023 11:56:01 zoster recombinant 3 completed Jesica Gladu, [employer] [facility] 06/11/2023 11:56:01 Influenza, split virus, quadrivalent, PF 3 completed Jesica Gladu, [employer] [facility] 06/11/2023 11:56:01 COVID-19, mRNA, LNP-S, PF, joe-sucrose, 30 mcg/0.3 mL 4 completed EDWARDO Escalera, [facility] 06/12/2024 10:56:56 Influenza, split virus, trivalent, PF 4 completed EDWARDO Escalera, [facility] 06/12/2024 10:56:56 Past Encounters Encounter ID Performer Location Encounter Start Date Encounter Closed Date Diagnosis/Indication Diagnosis SNOMED-CT Code Diagnosis ICD10 Code Diagnosis Note [id number] Tanja Sepulveda D.O. , [facility] [place], [address]ICE [address] [place] [address] 01/06/2016 10:14:11 01/06/2016 11:14:34 Loss of hair 519807341 L65.9 Systemic l upus erythematosus 77606556 M32.9 Administra tion of diphtheria, pertussis, and tetanus vaccine 182448350 Z23 Pain of breast 12635735 N64.4 Secondary hypothyroidism 99146530 E03.8 Thyroid nodule 086551784 E04.1 [id number] Collette cMdowell, OD [facility], [facility] [address] [facility] [place] [address] 01/11/2016 09:29:24 01/11/2016 11:16:50 Myopia 38054546 H52.13 Cl's wearer and rtc for fitting. Graves' disease 58047137 4 E05.80 States by the patient. unspecifie d condition. Medication monitoring 39 9104587 Z51.81 Plaquenil for over a year. No significan t change in the eyes. Glaucoma suspect 8129289 08 H40.013 FHX + Large cupping OD and OS RTC for VF pachemetry test and OCT at [facility]. [id number] Felisa German PA-C , [facility] [place], [address]ICE [address] [place] [address] 03/02/2016 09:32:29 03/02/2016 10:05:44 Urinary tract infectious disease 06093902 N39.0 Push fluids f/u if no improvemen t in 72 hours or for fever or back pain. Probiotics encouraged WIll treat UTI and see if RUQ symptoms resolve. NO obvious change on exam. If symptoms persist or worsen it may require further evaluation . 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 f/u in a year clinically . With size of nodules, will want to review previous records and if can document that has remained stable or lessened in size then will go out 2 years for next u/s since all nodules under cm. Will also try to find informatio n on neck biopsy she had done of neck nodule. If needing further neck u/s or attention will contact the patient. F/u in a year clinically . ADDENDUM: 01/22/15 neck/thyro id u/s showed no adenopathy and nodules are not over 1 cm. F/u in a year pre above, sooner if sx change. Systemic l upus erythematosus 35830627 M32.9 Stable- cont to see Rheumatolo gy. 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 She had been symptomati c for a year prior to that. Formal lupus criteria include arthralgia s, positive BAMBI, positive anti-Sm antibody, and leukopenia . Other associated features include Raynaud's, moderately positive Sjogren's antibodies , depressed serum complement level. She has not had any rash, serositis, mucositis. Primary complaint all along has been some joint pain, excessive fatigue, some mental fogginess. All symptoms have improved on Plaquenil 400 mg daily. She has been on and off a little prednisone , but never on other immunosupp ressive medication s. She had a number of questions about systemic lupus. We talked about dietary and other anti-infla mmatory measures. Basically, she seems to be doing pretty well. I would like to update a full set of lupus labs. I feel she should continue on the Plaquenil. She is up-to-date on eye exams. I will let her know about lab results, and I will want to see her again in 3 or 4 months, sooner if needed. Fatigue 40654144 R53.83 Ongoing fatigue. This started with her Graves' disease. 2011, but persisted after thyroid levels adjusted. There has been improvemen t with treatment of her SLE on Plaquenil, but still some ongoing fatigue. We discussed her sleep pattern. She is a very light sleeper. Her is on CPAP. Often sleep is nonrestora tive. I proposed simply trying her on some nighttime tizanidine to see if it is helpful for the fatigue. If she sleeps better it might also help her mental fogginess . Raynaud's phenomenon 266 148349 I73.00 Relatively mild Raynaud's. It usually just bothers her in the winter, but in a cold grocery store during the summer. She sometimes has changes. No drug treatment needed at present. Measuremen t finding above reference range 709520890 R76.8 Positive Sjogren's antibodies , Elevated polyclonal IgG antibodies . She has just mild dryness of the eyes. I suspect mild Sjogren's syndrome, but would not make the diagnosis at present. Secondary hypothyroidism 74755318 E03.8 Graves' disease, status post FRANCO. On thyroid supplement , recently (October 2015) euthyroid. Will update TSH. [id number] Tanaj AHUJA, [facility] [place] [place], [address]ICE [address] [place] [address] 07/31/2016 08:18:14 07/31/2016 09:34:49 Adult health examination 046545701 Z00.00 see Risk Assessment and Lifestyle Change Counseling section above Counseling 989301418 Z71 .9 Active or passive immunization 485953546 Z23 Screening for malignant neoplasm of cervix 539002307 Z12.4 added cytology b/c of hx of abnormal pap with hx of cryo. pt has been getting yearly pap. I explained that yearly may not be necessary is she has a normal pap. prefers to have cytology to go along with pap if going to extend interval. Screening mammography 24 823221 Z12.31 Systemic l upus erythematosus 66370484 M32.9 under care of rheumatolo gy. post exertional fatigue is challengin g. Raynaud's disease 202008 006 I73.00 under care of rheumatolo gy. pt has strategies to help manage Hypothyroidism 43598499 E03.9 euthyroid on current regimen [id number] William Martinez MD Rheumatol ogy, [facility] [address] [facility] [place] [address] 09/24/2016 09:57:46 09/25/2016 14:19:19 Systemic lupus erythematosus 97798878 M32.9 This patient has systemic lupus with a formal diagnosis made in 2013. She had been symptomati c for a year prior to that. Formal lupus criteria include arthralgia s, positive BAMBI, positive anti-Sm antibody, and leukopenia . Other associated features include Raynaud's, moderately positive Sjogren's antibodies , depressed serum complement level. She has not had any rash, serositis, mucositis. Primary complaint all along has been some joint pain, excessive fatigue, some mental fogginess. All symptoms have improved on Plaquenil 400 mg daily. She has been on and off a little prednisone , but never on other immunosupp ressive medication s. Basically, she seems to be doing pretty well. Labs last time were reassuring . For some reason she was charged a considerab le amount of money for the labs and requests we hold off on additional labs for now. Will check u/a today. . I feel she should continue on the Plaquenil. She is up-to-date on eye exams. Return 6 mo, check labs at that visit, but toled to report promtly any new sxs. Has had flu shot, has never had pneumonia vaccine. With SLE, she is at risk for pneumococc al pneumonia. Vaccine today. Administra tion of pneumococcal vaccine 24670115 Z23 [id number] Pastor Barnett MD , [facility], [address] [place] [address] 09/28/2016 07:56:16 09/28/2016 08:26:30 Acute upper respiratory infection 15034909 J06.9 given her PMH she understand s to take the antibiotic only if she gets worse, which is not indicated at at this time. Educated patient that URI is a viral illness of the upper airways. It is not bacterial and does not benefit from antibiotic s. Average duration of URI is 7-10 days but in a recent trial, treatment at 7-10 days of illness with antibiotic s, intranasal steroids, or placebo did not alter natural history at 3 weeks. Recommende d symptomati c treatments including NSAIDS, semi-uprig ht sleep position, antihistam jyoti at HS, limited course of nasal sympathomi metics and/or cough syrups, and nasal saline rinses with soft squeeze bottle or Neti pot. Return for fevers > 101 for 3 days, worsening sinus pain, or failure to resolve in 2-4 weeks. [id number] Matt Lorenzana MD Endocrino log, [address] [address] 01/22/2017 11:23:13 01/22/2017 12:25:57 Postablative hypothyroidism 003958771 E89.0 Hypothyroi dism s/p Grave's and MNG Doing well clinically at this time.Cont T4- 75 mcg daily Cont with labs q 6 months. Due for labs now and will go on way out. 01/2016 us showed decrease in size from 2011 of nodules. Due again in 2018.(Erro r in date noted on last years note in year of u/s-said 2014 instead of 2015). At that time was to go out 2 years for u/s hence 2018 date. Confirmed this year that not due for u/s until 2018. No clinical change to neck. f/u again in a year. Sooner if changes or questions. Systemic l upus erythematosus 37048626 M32.9 Stable- cont to see Rheumatolo gy. [id number] William Martinez MD Rheumatol akiko, [facility] [address] [facility] [place] [address] 03/25/2017 09:46:06 03/26/2017 07:41:25 Systemic lupus erythematosus 05191931 M32.9 This patient has systemic lupus with a formal diagnosis made in 2013. She had been symptomati c for a year prior to that. Formal lupus criteria include arthralgia s, positive BAMBI, positive anti-Sm antibody, and leukopenia . Other associated features include Raynaud's, moderately positive Sjogren's antibodies , depressed serum complement level. Some recent sun sensitivit y. Doing very well, but discussed that serology remains active and that I anticipate very mcfp treatment with Plaquenil. Will update labs. At 145 lbs, I would prefer to try reducing dose of HCQ to 300/d. Instructed , but if she notes recurrent sxs, should discuss with me. Raynaud's disease 19520611 006 I73.00 Mild, controlled by physical measures. Never any ulceration etc. Secondary hypothyroidism 95617482 E03.8 Graves' disease, status post FRANCO. On thyroid supplement , recently increased dose thyroid supplement and feels a little more energetic. Vitamin D deficiency 347 98111 E55.9 Discussed Vit D and Lupus.Slac ked off on taking supplement . Advised 2000 iu/d and we will recheck level 6 mo. [id number] Tanja Sepulveda D.O. , [facility], [address] [place] [address] 07/03/2017 10:48:51 07/03/2017 16:12:12 Active or passive immunization 258324889 Z23 [id number] Braeden Johnson MD , [facility], [address]ICE [address] [place] [address] 08/05/2017 14:00:12 08/05/2017 14:55:57 Adult health examination 013956074 Z00.01 Benign exam. UTD on labs.Mammo today.PAP due 2019. Counseling 590724190 Z71 .9 Screening mammography 24 657799 Z12.31 Systemic l upus erythematosus 05884244 M32.9 Stable. Followed by rheum. Secondary hypothyroidism 41543120 E03.8 Recent increase in levo dose. Repeat labs in 8 weeks. Followed by endo. Raynaud's disease 19520611 006 I73.00 Stable. Followed by rheum. Loss of hair 115262683 L 65.9 Improvemen t with spironolac tone. Labs UTD with derm. Posterior rhinorrhea 758 17275 R09.82 Recommend taking flonase daily and adding OTC antihistam ine (bradford, claritin, etc.) during season changes to minimize post-nasal drip and ear fullness. [id number] William Martinez MD Rheumatol [facility], [facility] [address] [facility] [place] [address] 09/26/2017 08:08:12 09/26/2017 10:48:27 Systemic lupus erythematosus 85229180 M32.9 This patient has systemic lupus with a formal diagnosis made in 2013. She had been symptomati c for a year prior to that. Formal lupus criteria include arthralgia s, positive BAMBI, positive anti-Sm antibody, and leukopenia . Other associated features include Raynaud's, moderately positive Sjogren's antibodies , depressed serum complement level. Some recent sun sensitivit y. Doing very well, but discussed that serology remains active and that I anticipate very mcfp treatment with Plaquenil. Will update labs. At 145 lbs, Plaquenil dose of HCQ to 300/d. Instructed , but if she notes recurrent sxs, should discuss with me. Raynaud's disease 839899 006 I73.00 Mild, controlled by physical measures. Never any ulceration etc. Long-term drug therapy 494149147 Z79.899 On mcfp Plaquenil. Needs regular eye exams. Up to date. [id number] Tanja AHUJA, [facility] [place], OFFICE [address] [place] [address] 10/14/2017 13:47:53 10/14/2017 14:07:27 Mass of left breast [id number] 7206949 N63.20 approx 4 mm oval non fixed lump L breastwill get US and dx mammo Systemic l upus erythematosus 78877015 M32.9 [id number] Matt Lorenzana MD Endocrino logy, [facility] [address] [place] [address] 01/20/2018 09:52:49 01/20/2018 10:51:25 Postablative hypothyroidism 333233746 E89.0 Hypothyroi dism s/p Grave's and MNG Patient is doing well at this time. Continue levothyrox ine 75 mcg 1 tablet Saturday through Saturday, 1.5 Tabs Saturday. Doing well clinically at this time.Tati nue labs q 6 months. 01/2016 us showed decrease in size from 2012 of nodules. Due to repeat US this year. Will try to complete imaging on way out. If no change in side of nodules, discontinu e regular US. Clinically doing well. f/u again in a year. Sooner if changes or questions. Systemic l upus erythematosus 34407734 M32.9 Stable- cont to see Rheumatolo gy. Pain in throat 295756727 R07.0 Reports irritation in throat. Most likely secondary to seasonal allergies. Suggested OTC antihistam jyoti Claritin-D or loratadine . If no improvemen t, patient to contact PCP. for evaluation . [id number] William Martinez MD Rheumatol ogcameron, [facility] [address] [facility] [place] [address] 03/31/2018 08:20:29 03/31/2018 08:48:20 Systemic lupus erythematosus 43643288 M32.9 This patient has systemic lupus with a formal diagnosis made in 2013. She had been symptomati c for a year prior to that. Formal lupus criteria include arthralgia s, positive BAMBI, positive anti-Sm antibody, and leukopenia . Other associated features include Raynaud's, moderately positive Sjogren's antibodies , depressed serum complement level. Doing very well, but discussed that serology remains active and that I anticipate very mcfp treatment with Plaquenil. Will update labs. She wondered about further reducing Plaquenil dose. Will see if any change in labs, then consider reduce to 200/d next time. However, explained that she should expect to stay on Plaquenil as an insurance policy indefinite ly. Ptosis of eyelid 6971571 0 H02.402 Unexplaine d. I think she is seeing an optometris t. She should discuss with the , but perhaps should be referred to Ophthalmol akiko or Neuro-opth . Discussed. Not related to Plaquenil. Doubt it is related to SLE. but may require further investigat ion. Long-term drug therapy 456650893 Z79.899 On mcfp Plaquenil. Needs regular eye exams. Up to date. [id number] Tanja AHUJA, [facility] [place], OFFICE [address] [place] [address] 07/03/2018 14:32:21 07/03/2018 14:39:41 Active or passive immunization 692087707 Z23 [id number] Tanja AHUJA, [facility] [place], OFFICE [address] [place] [address] 08/06/2018 14:16:28 08/06/2018 15:48:59 Systemic lupus erythematosus 40092071 M32.9 doing well past few months - best she has beenseeing Dr. Martinez. Adult heal th examination 694050573 Z00.00 see Risk Assessment and Lifestyle Change Counseling section aboveHM:Will castrejon 07/2016Ma mo today Counseling 957606547 Z71 .9 Depression screening 171 702660 Z13.89 1 out of 27depressi on screening tool administer ed, entered into emr, scored and discussed, time greater than 7.5 minutes Secondary hypothyroidism 95223872 E03.8 TSH at [facility] [place] [id number] William Martinez MD Rheumatol ogy, [facility] [address] 329 [facility] [place] [address] 10/10/2018 10:00:41 10/10/2018 10:40:16 Systemic lupus erythematosus 98819746 M32.9 This patient has systemic lupus with a formal diagnosis made in 2013. She had been symptomati c for a year prior to that. Formal lupus criteria include arthralgia s, positive BAMBI, positive anti-Sm antibody, and leukopenia . Other associated features include Raynaud's, moderately positive Sjogren's antibodies , depressed serum complement level. Doing very well on current 300 mg/d Plaquenil, but discussed that serology remains active and that I anticipate very mcfp treatment with Plaquenil. We can try having her reduce dose to 200 mg/d, but be alert for any signs recurring fatigue, rash, joint pain etc. Return 6 mo. Check labs at that time. Ptosis of eyelid 9148956 0 H02.402 Unexplaine d. Neg for Myasthenia antibodies .No change in sxs over past 6 mo.Suggest ed she see Ophthalmol ogist just to be sure no further work up is indicated. [id number] Matt Lorenzana MD Endocrino logy, [facility] [address] [place] [address] 12/22/2018 13:46:11 12/22/2018 14:32:02 Postablative hypothyroidism 982674070 E89.0 Hypothyroi dism s/p Grave's tx with FRANCO and MNG 2018 u/s stable since 2015. Monitor clinically and repeat if changes to symptoms. March 2018 TSH 2.51, FT4 1.27.Repea t labs again in March- can go yearly as long as stable. Will line up labs with Rheumatolo gy labs in March. Cont levothyrox ine 75 mcg-one tablet Mon- Sat and one and half tabs on Sun. F/u in a year, sooner if changes to symptoms. hx===Dg April 2012 Grave's and MNG I123 scan 79% uptake and uniform radioisoto pe 08/11/12. U/s 07/31/12 MNG with cystic and complex nodule right lobe 0.9 cm halo, left complex nodule internal flow. No FNA done at that time. On 08/18/12 I-131 ablation for Grave's with 10.37 mCi, TSI elevated. U/s Jul 2013 new nodules and decrease in size of most prior nodules. Medical history documents 02/23/16-ok ge 3- has full u/s report and all nodules are under a cm in diameter. 2018 u/s above and remain under 0.8 cm. no further u/s needed unless clinical change. Systemic l upus erythematosus 11400143 M32.9 Stable- cont to see Rheumatmaris gy. [id number] William Martinez MD Rheumatol [facility], [facility] [address] [place] [address] 04/14/2019 10:14:46 04/14/2019 10:40:58 Systemic lupus erythematosus 09243673 M32.9 This patient has systemic lupus with a formal diagnosis made in 2013. She had been symptomati c for a year prior to that. Formal lupus criteria include arthralgia s, positive BAMBI, positive anti-Sm antibody, and leukopenia . Other associated features include Raynaud's, moderately positive Sjogren's antibodies , depressed serum complement level. 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 Will update serology today. If unchanged, can reduce Plaquenil to 200 mg/d. Return 6 mo. 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 Needs regular eye exams. Up to date. [id number] Matt Lorenzana MD Endocrino logy, [facility] 31 [facility] [place] [address] 05/08/2019 08:57:12 05/08/2019 10:25:13 Postablative hypothyroidism 819988176 E89.0 Hypothyroi dism s/p Grave's tx with FRANCO and MNG 2017 u/s stable since 2015.PRELI M: stable today. Monitor clinically and repeat if changes to symptoms. TSH drifting up- now at 4.24 (was 2.5).Repea t labs again in May - will adjust dose prn.Labs every 3 months. Will line up labs with Rheumatolo gy labs in March. Cont levothyrox ine 75 mcg-one tablet Mon- Sat and one and half tabs on Sun. 7.5 pills per week. F/u in a year, sooner if changes to symptoms. Systemic l upus erythematosus 22115445 M32.9 Stable- cont to see Rheumatolo gy. Alopecia 58724904 L65.9 Noted when hyperthyro id - discussed that might be able to try going off since hyperthyro id state is resolved. But she sees Noah and spironolac tone has been recommende d to continue. Ptosis of eyelid 1227418 0 H02.409 Seeing Karthik- work-up thus far not showing much. Better than it was before.No lid lag today. [id number] Tanja AHUJA, [facility], OFFICE [address] [place] [address] 07/10/2019 08:08:17 07/10/2019 08:20:08 Active or passive immunization 362092249 Z23 [id number] Tanja Sepulveda D.O. , [facility], OFFICE [address] [place] [address] 08/12/2019 15:15:08 08/12/2019 15:56:09 Screening mammography 76801316 Z12.31 done today Systemic l upus erythematosus 72797029 M32.9 doing well past few months -some fatigue but no flares seeing Dr. Martinez. Secondary hypothyroidism 76473827 E03.8 TSH at goalasympt omaticfoll owed by [facility] send RF Adult heal th examination 261403881 Z00.00 see Risk Assessment and Lifestyle Change Counseling section aboveHM:Will castrejon todayMammo done today Counseling 701248846 Z71 .9 Depression screening 171 109706 Z13.89 2 out of 27depressi on screening tool administer ed, entered into emr, scored and discussed, time greater than 7.5 minutes Screening for malignant neoplasm of cervix 936421077 Z12.4 Insomnia 522794137 G47.0 0 difficult falling a sleep, wakes during nightwill try tizandine 4-8 mg qhspt not sure if she found it helpfulf/u as neded Irregular periods 731851 07 N92.6 past 2 cycleslong er bleeding, spottingwi ll c/t monitor and let me know if persists, develops heavy bleeding [id number] William Martinez MD Rheumatol [facility], [facility] [address] [address] [place] [address] 10/16/2019 08:48:49 10/16/2019 09:17:30 Systemic lupus erythematosus 81994653 M32.9 This patient has systemic lupus with a formal diagnosis made in 2013. She had been symptomati c for a year prior to that. Formal lupus criteria include arthralgia s, positive BAMBI, positive anti-Sm antibody, and leukopenia . Other associated features include Raynaud's, moderately positive Sjogren's antibodies , depressed serum complement level. 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 Will update serology today. Consider further reduction in Plaquenil to 200/d next time. Return 6 mo. Vitamin D deficiency 347 75166 E55.9 Discussed Vit D and Lupus.[facility] ked off on taking supplement . Advised 2000 iu/d and we will recheck level today Long-term drug therapy 275774517 Z79.899 On mcfp Plaquenil. Needs regular eye exams. Up to date. [id number] Matt Lorenzana MD Endocrino logy, [address] [address] 02/17/2020 08:07:47 02/19/2020 07:38:24 Postablative hypothyroidism 357717179 E89.0 Hypothyroi dism s/p Grave's tx with FRANCO and MNG 05/2019: LEFT LOBE:2 nodules < 1cm RIGHT LOBE: 3 nodules less than 1 cm. Stable since 2015.Monit or clinically and repeat if changes to symptoms. TSH= 3.31 (10/26); was 1.44 (07/25); was 4.24 (; was was 2.5 (03/24).Lab s every 6 months. Will line up labs with Rheumatolo gy labs in March. Cont levothyrox ine 75 mcg-one tablet Mon- Sat and one and half tabs on Sun. 7.5 pills per week. F/u in a year, sooner if changes to symptoms. Systemic l upus erythematosus 58484319 M32.9 Stable- cont to see Rheumatolo gy.But presence of another autoimmune disease increases likelihood for other autoimmune conditions and therefore increases complexity Alopecia 87536943 L65.9 Some return in 2019 during pandemic. Had noted when hyperthyro id -Has seen Noah and spironolac tone has been recommende d to continue.I f hair loss persists, can certainly discuss increasing dose. Ptosis of eyelid 6836112 0 H02.409 Seeing ONiki- work-up didn't have clear etiology. Better than it was before.No lid lag today. Vitamin D deficiency 347 35528 E55.9 Was treated by Juan. Had been on 50K x 8 weeks. Now on OTC 5000 per day Update to see if replete. [id number] Tanja Sepulveda D.O. , [facility], [address]ICE [address] [place] [address] 02/18/2020 08:10:11 02/18/2020 12:35:24 Posterior rhinorrhea 97595572 R09.82 Allergic rhinitis 557781 04 J30.9 [id number] Beth Reyes MD Rheumatol akiko, [facility] [address] [facility] [place] [address] 04/19/2020 07:54:12 04/19/2020 12:26:45 Systemic lupus erythematosus 10407625 M32.9 Patient states she is doing well. C3 levels were depressed in March, we will check labs for disease activit and reassess. Continue plaquenil for now. Patient to continue to follow with ophthalmol ogy. Patient counselled to use sunscreen 50+ SPF and a big hat while out in the sun. [id number] Tanja AHUJA, [facility], OFFICE [address] [place] [address] 08/19/2020 14:24:09 08/19/2020 15:20:55 Adult health examination 125637665 Z00.00 see Risk Assessment and Lifestyle Change Counseling section aboveHM:Will p 08/2019Mam mo done today Counseling 650545033 Z71 .9 including cardiovasc ular risk reduction counseling Depression screening 171 764001 Z13.89 0 out of 27 phq 9mood is gooddepres hayley screening tool administer ed, entered into emr, scored and discussed, time greater than 7.5 minutes Screening for alcohol abuse 787460367 Z13.39 negative audit Secondary hypothyroidism 89607744 E03.8 TSH 3.52asympt omaticfoll owed by ENDO Systemic l upus erythematosus 59969460 M32.9 stable past few months -some fatigue, joint pains but no flares now seeing Dr. Reyes . [id number] Beth Reyes MD Rheumatmarina wharton, [address] [place] [address] 08/24/2020 09:12:45 08/25/2020 07:15:50 Systemic lupus erythematosus 43487473 M32.9 Patient states she is doing well. C4 levels are chronicall y depressed. ESR elevated since 2016, unsure if it is due to chronic anemia. We will check labs for disease activit and reassess. Continue plaquenil for now. Patient to continue to follow with ophthalmmarina wharton. Patient got the flu shot. Patient to wear gloves for her Raynaud symptoms.R TC in 6 months or sooner if needed. Normocytic anemia 062871 002 D64.89 Previously iron studies showed iron deficiency , patient has not been taking her iron, she was counselled to start taking it. [id number] Beth Reyes MD Rheumatmarina wharton, [address] [place] [address] 11/29/2020 07:58:20 11/29/2020 15:21:50 Systemic lupus erythematosus 98163543 M32.9 Patient states she is doing well. She denies any symptoms. Clinically lupus is quiet. ESR is chronicall y elevated, could be due to anemia. Complement levels fluctuate. Patient has RBCs in her urine test as she was spotting for her periods. Continue plaquenil for now. Patient to continue to follow with ophthalmol akiko. Patient got the flu shot. Patient to wear gloves for her Raynaud symptoms. Patient to call office if any change in symptoms. RTC in 4 months or sooner if needed. Normocytic anemia 003663 002 D64.89 Hb improving. Patient started taking her iron supplement s as she previously had iron deficiency . [id number] Matt Lorenzana MD Endocrino logy, [address] [address] 02/17/2021 08:26:22 02/20/2021 06:35:30 Postablative hypothyroidism 608112048 E89.0 Hypothyroi dism s/p Grave's tx with FRANOC and MNG TSH= 3.41 (08/26); was 3.52; was 3.31 (10/26); was 1.44 (07/25); was 4.24 (; was was 2.5 (03/24). Will line up labs with Rheumatolo gy labs in March. Cont levothyrox ine 75 mcg-one tablet Mon- Sat and one and half tabs on Sun. 7.5 pills per week. Recommend monitoring labs every 6 months. (ordered but will plan to have PCP follow-up) Systemic l upus erythematosus 58691158 M32.9 Stable- cont to see Rheumatolo gy. But presence of another autoimmune disease increases likelihood for other autoimmune conditions and therefore increases complexity Alopecia 66458531 L65.9 Some return in 2019 during pandemic. Had noted when hyperthyro id. Has seen Noah and spironolac tone (50 bid) has been recommende d to continue. [place] is that this is androgen based- no androgen labs seen in EMR. If hair loss persists, can certainly discuss increasing dose. Ptosis of eyelid 4070471 0 H02.409 Seeing Karthik- work-up didn't have clear etiology. Pt. feels it has been better than it was before. No lid lag today. Multinodular goiter 2375 14801 E04.2 05/2019: LEFT LOBE:2 nodules < 1cm RIGHT LOBE: 3 nodules less than 1 cm. Stable since 2016. Monitor clinically for signs of dysphagia or dysphonia and repeat if changes to symptoms. [id number] Beth Reyes MD Rheumatol akiko, [address] [place] [address] 02/21/2021 07:56:02 02/21/2021 17:51:34 Systemic lupus erythematosus 32762216 M32.9 Patient states she is doing well. She denies any symptoms. Clinically lupus is quiet. ESR is chronicall y elevated, could be due to anemia. Complement levels fluctuate. Continue plaquenil for now. Patient to continue to follow with ophthalmol ogy. Patient got the COVID vaccine. Check labs for disease activity. Patient to call office if any change in symptoms. RTC in 4 months or sooner if needed. Normocytic anemia 578509 002 D64.89 Hb improving. Patient started taking her iron supplement s as she previously had iron deficiency . Numbness of hand 4876660 04 R20.0 Numbness of bilateral upper extremitie s. Check EMG. [id number] Beth Reyes MD Rheumatol ogcameron, [address] [address] 06/27/2021 07:27:07 06/27/2021 18:45:32 Systemic lupus erythematosus 26336148 M32.9 Patient states she is doing well. She denies any symptoms. Clinically lupus is quiet. ESR is chronicall y elevated, could be due to anemia. Lower then previous visit. Complement levels fluctuate. Continue plaquenil for now. Patient to continue to follow with ophthalmol ogy. Patient to get the COVID booster and the flu vaccine. Check labs for disease activity before next visit. Patient to call office if any change in symptoms. RTC in 6 months or sooner if needed. Normocytic anemia 608679 002 D64.89 Patient started taking her iron supplement s as she previously had iron deficiency . Numbness of hand 3044610 04 R20.0 Numbness of bilateral upper extremitie s. EMG showed bilateral CTS.Wrists braces.If worsening in symptoms, will refer to hand surgery. [id number] Tanja Sepulveda D.O. , [facility], OFFICE [address] [place] [address] 08/23/2021 11:11:12 08/28/2021 21:27:46 Secondary hypothyroidism 36730788 E03.8 TSH 2.74asympt omaticfoll owed by ENDO Systemic l upus erythematosus 30380623 M32.9 stable past few months -some fatigue, joint pains but no flares now seeing Dr. Reyes . Adult heal th examination 114302786 Z00.00 see Risk Assessment and Lifestyle Change Counseling section aboveHM:Pa p 08/2019Mam mo 08/2020 Counseling 462138004 Z71 .9 including cardiovasc ular risk reduction counseling Depression screening 171 596391 Z13.31 neg phq 9mood is gooddepres hayley screening tool administer ed, entered into emr, scored and discussed, time greater than 7.5 minutes Screening for alcohol abuse 976111759 Z13.39 negative audit Screening mammography 24 808186 Z12.31 Screening for malignant neoplasm of colon 008706226 Z12.11 Referral for a DIRECT booked colonoscop y. This patient is a healthy ASA Class 1 or 2 patient (only mild systemic disease), or a STABLE, well controlled insulin dependent diabetic. They do not have serious cardiac disease ie CT/angiopl asty within 1 year, symptomati c CHF; renal failure with CKD 4 or 5; take Coumadin, Plavix, Aggrenox, etc. [id number] Norman Ortiz MD [facility], [facility] [address] [facility] [place] [address] 11/03/2021 06:48:37 11/03/2021 12:13:14 [id number] Beth Reyes MD Rheumatol ogy, [facility] [address] [place] [address] 12/27/2021 07:33:21 01/03/2022 08:09:15 Systemic lupus erythematosus 57310298 M32.9 Patient states she is doing well. She denies any symptoms. Clinically lupus is quiet. ESR is chronicall y elevated, could be due to anemia. Complement levels fluctuate. Repeat ESR and complement s in a different lab. Continue plaquenil for now. Patient to continue to follow with ophthalmol ogy/optome try. Patient got the COVID series. 4th dose discussed with patient. Check labs for disease activity before next visit. Patient to call office if any change in symptoms. RTC in 6 months or sooner if needed. Normocytic anemia 025259 002 D64.89 Patient started taking her iron supplement s as she previously had iron deficiency .Hb slowly improving. Numbness of hand 1370933 04 R20.0 Numbness of bilateral upper extremitie s. EMG showed bilateral CTS.Wrists braces. She is not using them as often, she was counselled to use them more frequently .If worsening in symptoms, will refer to hand surgery. Long-term drug therapy 420412299 Z79.899 On plaquenil. Following with optometris t.Will get last visit note. [id number] Tanja Sepulveda D.O. , [facility], OFFICE [address] [place] [address] 02/02/2022 10:49:23 02/02/2022 11:28:54 Screening for disorder 473129900 Z11.59 Systemic l upus erythematosus 55599447 M32.9 stable past few months -some fatigue, joint pains but no flares now seeing Dr. Reyes . Secondary hypothyroidism 11899902 E03.8 TSH 7.43sympto matic with increased fatigue, hair losswill increase levo 75 mcg to 9 pills per week vs 7.5 per weekrepeat 8 weeks [id number] Beth Reyes MD Rheumatol akiko, [facility] [address] [address] [facility] [place] [address] 07/31/2022 11:30:05 08/03/2022 13:50:34 Systemic lupus erythematosus 14535781 M32.9 Patient states she is doing well. She denies any symptoms. Clinically lupus is quiet. ESR is chronicall y elevated. Complement levels fluctuate. Repeat ESR in a different lab. Continue plaquenil for now. Patient to continue to follow with ophthalmol ogy/optome try. Patient got the COVID booster and the flu shot. Monitor labs for disease activity. I informed the patient that I will be leaving the practice and she has to contact her pcp to get a referral for rheumatolo gy. She verbalizes understand ing and has already received my letter. Erythrocyt e sedimentation rate above reference range 664376416 R70.0 Repeat ESR.Check SPEP and immunofixa tion.Lupus is quiet and ESR has been chronicall y elevated.C RP normal. Long-term drug therapy 447992547 Z79.899 On plaquenil. Following with optometris t. [id number] Tanja Furcolo D.O. , [facility], [address]ICE [address] [place] [address] 08/10/2022 14:32:09 08/10/2022 15:07:03 Bilateral carpal tunnel syndrome 4775349193 1551368 G56.03 bilat with R>Lwill start wearing braces nightlyref erral to Dr Flannery for PT Systemic l upus erythematosus 28880933 M32.9 stable past few months -some fatigue, joint pains but no flaresnow seeing Dr. Reyes .no concern about anemiarefe [facility]ral [facility] [place] Heterogene ously dense breast composition 347452607 R92.2 dense breastno 1st dgree relation but maternal aunt with breast cancerwoul d like to consider MRI for screeningw ill refer to breast center [id number] Nell Luna , OTR/L, CHT Physical Therapy, [facility] [address] [place] [address] 08/24/2022 08:02:32 08/24/2022 13:49:26 Pain of right wrist 3944228620 06036 M25.679 [id number] Tanja Calebcolo D.O. , [facility], [address] [place] [address] 10/02/2022 08:56:23 10/02/2022 13:19:37 Systemic lupus erythematosus [id number] M32.9 overall stable past few months -fatigue, joint pains persistwas seeing Dr. Reyes .[facility] [place] accomodati ons to be done for workcopied to chart Secondary hypothyroidism 71586996 E03.8 TSH 0.52 2c/w present dose of replacemen t [id number] Tanja Furcolo D.O. , [facility] [place], [address]ICE [address] [place] [address] 05/23/2023 08:30:24 05/23/2023 09:51:35 Adult health examination [id number] Z00.00 see Risk Assessment and Lifestyle Change Counseling section aboveHM:Will castrejon 08/2019 w/ 5 yrMammo olo 11/03/2021 with 10 yr repeatlabs 2021 Depression screening 171 500090 Z13.31 depression screening tool administer edneg phq 9mood is good Screening for alcohol abuse [id number] Z13.39 Alcohol use screening tool administer edneg audit Systemic l upus erythematosus 35731892 M32.9 overall stable past few months -fatigue, joint pains persistwas seeing [facility] [place] Secondary hypothyroidism 77231900 E03.8 TSH 0.57 2c/w present dose of replacemen t Chest pain 36284444 R07. 9 2 episodes less than 1 min at restekg wnl - reassuredd iscussed impact of stress Allergic conjunctivitis of bilateral eyes [id number] 52504 H10.13 advised daily zyrteccan try zaditor drops or pataday Pain of le ft knee joint [id number] 08347 M25.562 posteriord iscussed PT- declinesgi lluvia handouts with exercisesf /u prn [id number] Braeden Johnson MD , [facility] [place], [address]ICE [address] [place] [address] 06/17/2023 10:38:57 06/17/2023 13:59:04 Hordeolum externum of upper eyelid of left eye [id number] 73461 H00.014 will c/w warm compresses will send cipro drops to use x 5 days Congestion of nasal sinus 55381979 R09.81 likely viral etiologyad vised expectoran t (mucinex), fluids, anti histaminei f sxs do not begin to improve or worsen will be in touch [id number] Braeden Johnson MD , [facility] [place], [address]ICE [address] [place] [address] 05/29/2024 08:34:10 05/29/2024 12:26:59 Adult health examination [id number] Z00.00 see Risk Assessment and Lifestyle Change Counseling section aboveHM:Will castrejon todayMammo olo 11/03/2021 with 10 yr repeatlabs 2023 Depression screening 171 932650 Z13.31 depression screening tool administer edneg phq 9mood is good Screening for alcohol abuse 858074732 Z13.39 Alcohol use screening tool administer edaudit is neg Secondary hypothyroidism 37694637 E03.8 TSH 0.66 4c/w present dose levo 75 mg once daily 5 days/week and 2 tabs 2 days/week Systemic l upus erythematosus 91952715 M32.9 overall stable past few months -fatigue, joint pains persistwas seeing [facility] [place] Screening for malignant neoplasm of cervix 120343890 Z12.4 Irregular periods 078544 07 N92.6 irregular menses q 9-10 monthsdeni es going longer than 12 monthswill check US Acute uppe r respiratory infection 39590603 J06.9 sxs improvingc /w mucinex, flonase fluidsf/u prn Health Concerns Section Related Observation LastModified by Organization Detai ls LastModified Time None Recorded Concern Status LastModified by Organization Details LastModified Time None Recorded Advance Directives Directive None Recorded Payers Insurance Date Sequence Insurance Name Policy Number Policy Shafer Covered Member ID Shafer Member ID Guarantor Name 10/14/2024 1 [facility] [id number] 01 Maury Moiz [id number] Nancy S Moiz 08/07/2023 PAYMENT PLAN Nancy S Moiz Notes Date Note Type Note Provider Name and Address Organization Details Recorded Time 2 text/html Physical Therapy / Occupational Therapy History of Present IllnessReported by PatientHPIFor work status, 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 For history, (47 yo with dx of bilat cts. had emg 2018 showing mod median nerve slowing bilaterally. little changes in nerve symptoms since emg. cc is pain in r wrist with all adl). For recreational status, (sewing, legos, stretches and walking program). OT Hand/FingersReported by PatientHPIFor hand dominance, patient reportsright. For location, patient reportsbilateral(equal symptoms). For severity, patient reportspain level 0-7/10(r dorsal wrist cyst present; tingling is mostly annoying; worse in am). 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 For coronary artery disease risk assesment, patient reportsno personal history of diabetes,no history of peripheral vascular disease, aaa, or carotid disease, andno personal history of coronary artery disease. For lung cancer risk assessment, patient reportsnever smokedandno asbestos exposure. For cognitive/behavioral risk assessment:, patient reportsno personal history of mental illnessandno family history of mental illness.Diet CounselingFor diet, patient reportscounseled about appropriate calcium intake and good dietary sources of calcium.andcounseled about the importance of maintaining a positive calcium balance and taking 1000 iu vitamin d daily..Physical Activity CounselingFor exercise counseling, patient reportsdiscussed the importance of daily physical activityanddiscussed the importance of weight bearing exercise.Safety CounselingFor safety, patient reportscounseled about protecting skin from the sun and lowering the risk of skin cancer.Family PlanningFor family planning, patient reportsusing control __(partner vasectomy). Physical Exam/FemaleReported by PatientHPIFor pha, patient reportspatient is here for a wellness visit. she describes her health status as fair. patient's health is the same as last year.. Addison Elmore NP [address] [place], [phone], [facility] 05/23/2023 09:41:57 3 text/html ROS as noted in the HPI f/u on eye issuesswelling under L eye - ? stye - got worsepainful face, sinuses, full earspus on eyes - drainedtiredrunny nose, cough Addison Elmore NP [address] [place], [phone], [facility] 06/17/2023 11:11:46 4 text/html Risk Assessment and Lifestyle Change Counseling 18-50Reported by PatientRisk AssessmentFor breast cancer risk assessment, patient reportsfamily history of breast cancer __but reportspersonal history of breast cancer or dcis. For coronary artery disease risk assesment, patient reportsno personal history of diabetes,no history of peripheral vascular disease, aaa, or carotid disease, andno personal history of coronary artery disease. For lung cancer risk assessment, patient reportsnever smokedandno asbestos exposure. For cognitive/behavioral risk assessment:, patient reportsno personal history of mental illnessandno family history of mental illness.Diet CounselingFor diet, patient reportscounseled about appropriate calcium intake and good dietary sources of calcium.andcounseled about the importance of maintaining a positive calcium balance and taking 1000 iu vitamin d daily..Physical Activity CounselingFor exercise counseling, patient reportsdiscussed the importance of daily physical activityanddiscussed the importance of weight bearing exercise.Safety CounselingFor safety, patient reportscounseled about protecting skin from the sun and lowering the risk of skin cancer.Family PlanningFor family planning, patient reportsusing control __(partner vasectomy). Physical Exam/FemaleReported by PatientHPIFor pha, patient reportspatient is here for a wellness visit. she describes her health status as fair. patient's health is the same as last year.. Addison Elmore NP [address] [place], [address], [facility] 05/29/2024 09:29:54 OBGyn Episode No OBEpisode recorded.
--- OUTSIDE RECORDS SUMMARY | 2025-04-28 08:24 | XMS_ITS | Clinical Summary ---
Author Organization [facility] Address [address] [facility] [address] [place] [phone] Phone Care Team Providers Care Riding Double Name Role Phone Kelsi Berry STEVE Primary Care Provider Allergies Active Allergy Reactions Criticality Noted Date Comments Amoxicillin Hives Medium 08/27/2019 Azithromycin Hives Medium 08/27/2019 Medications hydroxychloroqu ine (PLAQUENIL) 200 mg tablet TAKE 2 TABLETS BY MOUTH EVERY EVENING 1 02/20/2019 Active levothyroxine (SYNTHROID, LEVOTHROID) 75 MCG tablet TAKE 1 TABLET SAT-SAT AND ONE AND HALF TABS ON SATURDAY 1 02/20/2019 Active spironolactone (ALDACTONE) 25 MG tablet Take 50 mg by mouth daily. 0 02/20/2019 Active cholecalciferol (VITAMIN D3) 2,000 unit tablet Take 1,000 Units by mouth daily. Active Social History Tobacco Use Types Packs/Day Years Used Date Smoking Tobacco: Never Assessed Education Answer Date Recorded Are you interested in more education? Not on janki e 02/01/2023 Are you concerned about learning? Not on file 02/01/2023 No 02/01/2023 No 02/01/2023 Digital Access Answer Date Recorded No 03/02/2023 No 03/02/2023 No 03/02/2023 Reliable internet access at home? Not on file 03/02/2023 Device with a working camera? Not on file Comments Unknown Sex and Gender Information Value Date Recorded Sex Assigned at Not on file Legal Sex Female 9:32 PM EDT Gender Identity Not on file Sexual Orientation Not on file Last Filed Vital Signs Vital Sign Reading Time Taken Comments Blood Pressure - - Pulse - - Temperature - - Respiratory Rate - - Oxygen Saturation - - Inhaled Oxygen Concentration - - Weight 68 kg (150 lb) 04/24/2019 6:57 PM EDT Height 172.7 cm (5' 8 ) 04/24/2019 6:57 PM EDT Body Mass Index 22.81 04/24/2019 6:57 PM EDT Plan of Treatment Health Maintenance Due Date Last Done Comments Adult Td,Tdap Booster 1975 LIPID PANEL 1973 POTASSIUM LEVEL 1973 TSH LEVEL 1973 DEPRESSION SCREENING 1985 SMOKING Hx and SMOKELESS TOBACCO SCREENING 1986 HEPATITIS C SCREENING 1991 HIV ONE-TIME SCREENING (18-6 5 YEARS) 1991 MAMMOGRAM 2013 COLOGUARD 2018 COLONOSCOPY 2018 COLORECTAL CANCER SCREENING 2018 FIT TEST 2018 FOBT 2018 SIGMOIDOSCOPY 2018 VIRTUAL COLONOSCOPY 2018 PNEUMOCOCCAL VACCINES (50+ years) (1 of 1 - PCV) 2023 ZOSTER VACCINES (1 of 2) 2023 COVID-19 VACCINE (3 - 2023-2 5 season) 2024 12/29/2020, 12/01/2020 PAP SMEAR 05/29/2027 05/29/2024, 08/12/2019 HEPATITIS A VACCINES Aged Out No long er eligible based on patient's age to complete this topic HIB VACCINES Aged Out No longer eligi ble based on patient's age to complete this topic MENINGOCOCCAL VACCINES (ACWY) Aged Out No longer eligible based on patient's age to complete this topic MENINGOCOCCAL VACCINES (B) Aged Out N o longer eligible based on patient's age to complete this topic Medical Devices Not on file Procedures Procedure Name Priority Date/Time Associated Diagnosis Comments PAP TEST Routine 05/29/2024 12:00 AM EDT from Last 3 Months or Most Recently Relevant to Health Maintenance Results * Pap Test (05/29/2024 12:00 AM EDT) 05/29/2024 06/01/2024 9:2 9 AM EDT Narrative SEE NARRATIVE - 06/05/2024 11:48 AM EDT [address] [address] Investment Banking Manager: Jacqueline Weiner MD [employer] Cytology Report FINAL DIAGNOSIS A. PAP SMEAR (THIN PREP) CE: SPECIMEN ADEQUACY: Satisfactory for evaluation; transformation zone present. INTERPRETATION: NEGATIVE FOR INTRAEPITHELIAL LESION OR MALIGNANCY. This specimen was analyzed by the automated ThinPrep Imaging System ([employer].) and the selected rivera were reviewed by a verse writer. Electronically Signed Out By: FLORENTINO Kearney(ASCP) The Pap test is a screening test primarily for squamous cancers and precursors and has associated false-negative and false-positive results. New technologies such as liquid-based preparations may decrease but will not eliminate all false-negative results. Regular sampling and follow-up of unexplained clinical signs and symptoms are recommended to minimize false negative results. PROCEDURES/ADDENDA HPV Testing (Requested) Ordered Date: 06/01/2024 A. PAP SMEAR (THIN PREP) CE: Human Papilloma Virus Test NEGATIVE for high-risk Human Papilloma Virus types 16, 18, 45 and the Other high risk probe set (Includes 31, 33, 35, 39, 51, 52, 56, 58, 59, 66, 68) Note: Testing performed by [employer] Onclarity HR-HPV analysis. Clinical correlation is advised. This HPV test was performed at [facility], [address] [place] [address]. This test has been FDA approved for both SurePath and ThinPrep cervical cytology specimens. The accuracy and precision of this test for all other specimen sources has been verified in the Cytopathology Laboratory of the [facility] and has not been cleared or approved by the U.S. Food and Drug Administration. Clinical correlation is advised. CLINICAL HISTORY Date of Last Menstrual Period: Not Provided Menstrual History: Unknown Other Clinical Conditions: Screening Pap SPECIMEN SOURCE A: PAP SMEAR (THIN PREP) CE Patient Name: NANCY CERON : 1975 (Age: 49) Sex: F Institution: [facility] Location: [facility] Date of Collection: 05/29/2024 Date of Reported: 06/05/2024 11:48 Results to: Kelsi Berry NP Kelsi Berry NP CYTOLOGY ORDERABLES Final R esult SEE NARRATIVE from Last 3 Months or Most Recently Relevant to Health Maintenance [facility] Address: [address] [address] [facility] Care Teams Riding Double Relationship Specialty Start Date End Date Kelsi Berry NP [address] [place] [id number] PCP - General 01/08/22 Additional Source Comments The information contained in this document represents components of the legal health record. It is not the complete legal health record.[facility]
== END 2025-04-28 08:46 | disposition home or self-care (01) ==
LOC: HO.RHES 08:14
PROVIDERS: PCP Family Medicine; Visit Provider Internal Medicine Rheumatology
DX: M32.9 Systemic lupus erythematosus, unspecified (principal); Z79.899 Other long term (current) drug therapy
CPT/HCPCS: 99214; G2211

== ENCOUNTER 2025-04-28 08:13 | Outpatient (REF) | payer OTHER, SELFPAY ==
[2025-04-28 13:21] LABS: MANUAL DIFF FLAG NO
[2025-04-28 13:34] LABS: Hematocrit 42.3 % (37.0-47.0); Hemoglobin 13.9 g/dl (12.0-16.0); Imm Gran Abs Auto 0.01 X10*3/uL (0.00-0.03); Imm Gran Pct Auto 0.4 % (0.0-0.4); Lymphocytes Absolute Auto 0.8 X10*3/uL (1.2-4.9); Mean Corpuscular HGB Conc 32.9 g/dl (31.0-35.0); Mean Corpuscular Hemoglobin 31.0 pg (27.0-33.0); Mean Corpuscular Volume 94.2 fL (80.0-98.0); NRBC Abs Auto 0.000 X10*3/uL (0.0-0.012); NRBC Pct Auto 0.0 /100WBC (0.0-0.2); Platelet Count 350 X10*3/uL (160-400); Red Blood Count 4.49 X10*6/uL (4.20-5.50); White Blood Count 2.8 X10*3/uL (4.8-10.8)
[2025-04-28 13:43] LABS: Appearance Urine Clear; Glucose Urine UA Negative (Negative); PH 6.0 (5.0-9.0); Specific Gravity - Urine 1.010 (1.005-1.025)
[2025-04-28 13:54] LABS: Alanine Aminotransferase 21 U/L (0-31); Aspartate Amino Transferase 28 U/L (5-31); Estimated Glomerular Filt Rate > 60
[2025-04-28 14:29] LABS: Total Protein Urine Random < 7 mg/dL (<12)
== END 2025-04-28 08:14 | disposition home or self-care (01) ==
LOC: HO.HKASLDS 08:13
PROVIDERS: PCP Family Medicine; Visit Provider Internal Medicine Rheumatology
DX: M32.9 Systemic lupus erythematosus, unspecified (principal); Z79.899 Other long term (current) drug therapy; I73.00 Raynaud's syndrome without gangrene; L65.9 Nonscarring hair loss, unspecified
CPT/HCPCS: 36415; 81001; 82565; 82570; 84156; 84450; 84460; 85025; 85652; 86140; 86160; 86225